=== PATIENT | male | born 1955 | race Caucasian/White ===

== ENCOUNTER 2018-07-05 16:42 | Emergency (ER) | payer OTHER ==
[~2018-07-05] VITALS: Ht 165.1 cm; Wt 63.5 kg
[2018-07-05 16:56] VITALS: BP 134/107
--- NOTE | 2018-07-05 16:58 | NUR ---
PT BIBSELF C/O HIGH BLOOD SUGAR. PER PT HIS LAST BS WAS 501, PT TAKES ORAL HYPOGLYCEMIC BUT RAN OUT. AAOX4, RESPIRATIONS EVEN AND UNLABORED, NAD NOTED, VSS, PENDING MD TOWNSEND
[2018-07-05] MEDS ORDERED: IV NS 0.9% 1,000 ML BAG IV ONE (17:30)
[2018-07-05 17:35] LABS: BASOPHILS # (AUTO) 0.1 /CMM (0.0-0.2); BASOPHILS % (AUTO) 1.2 % (0.0-2.0); EOSINOPHILS % (AUTO) 3.4 % (0.0-6.0); HEMATOCRIT 36 % (39-51); HEMOGLOBIN 12.3 g/dL (13.5-17.5); LYMPHOCYTES # (AUTO) 1.8 /CMM (0.8-4.8); LYMPHOCYTES % (AUTO) 35.6 % (20.0-44.0); MEAN CORPUSCULAR HGB CONC 34 g/dl (31.0-36.0); MEAN CORPUSCULAR VOLUME 86 fL (80-96); MONOCYTES # (AUTO) 0.2 /CMM (0.1-1.30); NEUTROPHILS # (AUTO) 2.7 /CMM (1.8-8.9); NEUTROPHILS % (AUTO) 54.8 % (43.0-81.0); PLATELET COUNT (AUTO) 242 /CMM (150-450); RED BLOOD CELL COUNT(AUTO) 4.18 MIL/uL (4.5-6.0)
--- NOTE | 2018-07-05 17:38 | NUR ---
Addendum: Normal saline 1 L; start time 1738 - end time 1838; LAC piv# 20; port #1 Normal saline 1 L; start time 1738 - end time 1838; LAC piv# 20; port #2
[2018-07-05 17:48] LABS: ALBUMIN 3.7 g/dL (3.4-5.0); BILIRUBIN,TOTAL 0.2 mg/dL (0.2-1.0); CALCIUM, SERUM 8.4 mg/dL (8.5-10.1); CREATININE 1.2 mg/dL (0.6-1.3); POTASSIUM 4.5 mmol/L (3.5-5.1); TOTAL PROTEIN, SERUM 6.9 g/dL (6.4-8.2)
--- NOTE | 2018-07-05 19:01 | NUR ---
PT GIVEN ACI INSTRUCTIONS, PT READY TO BE D/C AFTER IV FLUIDS ARE DONE. PT VERBALIZES UNDERSTANDING. WILL ENDORSE TO ONCOMING SHIFT
--- NOTE | 2018-07-05 19:01 | NUR ---
BS 387
== END 2018-07-05 19:27 | disposition home or self-care (01) ==
LOC: ER 16:46
DX: E11.65 Type 2 diabetes mellitus with hyperglycemia (principal); R01.1 Cardiac murmur, unspecified; Z90.49 Acquired absence of other specified parts of digestive tract; Z76.0 Encounter for issue of repeat prescription
CPT/HCPCS: 36415; 80048-TC; 80076-TC; 82010-TC; 82962-TC; 85025-TC; A4606; J7030; Z7610

== ENCOUNTER 2018-07-28 22:52 | Emergency (ER) | payer OTHER ==
--- NOTE | 2018-07-28 23:16 | NUR ---
INFORMED BY ADMITTING "PT CAME TO THE DESK AND SAID I AM LEAVING"
[2018-07-29] MEDS ORDERED: REPA0.5T4 PO (15:26)
== END 2018-07-28 23:20 | disposition left against medical advice (07) ==
LOC: ER 22:54
DX: Z53.21 Procedure and treatment not carried out due to patient leaving prior to being seen by health care provider (principal); R10.9 Unspecified abdominal pain

== ENCOUNTER 2018-07-29 14:40 | Emergency (ER) | payer OTHER ==
[~2018-07-29] VITALS: Ht 167.6 cm; Wt 61.2 kg
--- NOTE | 2018-07-29 15:05 | NUR ---
BIB SELF, W C/O HIGH BLOOD SUGAR. "BLOOD SUGAR OUT OF CONTROL, 570 1 HR AGO" OUT OF MEDICATION. TO ER BED 1, HOOKED TO MONITOR, AWAITING MD TOWNSEND
[2018-07-29] MEDS ORDERED: REPA0.5T4 PO (15:26)
[2018-07-29] MEDS ORDERED: IV NS 0.9% 1,000 ML BAG IV ONE (15:30)
[2018-07-29 15:44] LABS: CALCIUM, SERUM 8.7 mg/dL (8.5-10.1); CREATININE 1.4 mg/dL (0.6-1.3); POTASSIUM 4.7 mmol/L (3.5-5.1)
[2018-07-29] MEDS ORDERED: INSULIN REGULAR, HUMAN 100 UNIT/ML 10 ML VIAL ONE (16:50)
[2018-07-29] MEDS ORDERED: INSULIN REGULAR, HUMAN 100 UNIT/ML 10 ML VIAL SQ ONE (17:00)
[2018-07-29 17:22] VITALS: BP 153/89
--- NOTE | 2018-07-29 17:22 | NUR ---
IV removed. Catheter intact and site benign. Pressure and 4x4 applied to site. No bleeding noted.Patient discharged to home in stable condition. Written and verbal after care instructions given. Patient verbalizes understanding of instruction.
== END 2018-07-29 17:23 | disposition home or self-care (01) ==
LOC: ER 14:42
DX: E11.65 Type 2 diabetes mellitus with hyperglycemia (principal); R00.0 Tachycardia, unspecified
CPT/HCPCS: 36415; 80048-TC; 82962-TC; A4606; J1815; J7030; Z7610

== ENCOUNTER 2018-08-15 08:08 | Emergency (ER) | payer OTHER ==
[~2018-08-15] VITALS: Ht 167.6 cm; Wt 70.3 kg
[~2018-08-15 08:08] MED LIST: REPA0.5T4 PO
--- NOTE | 2018-08-15 08:19 | NUR ---
AAOX3, BIBRA FOR HYPOGLYCEMIA, BS=59MG/DL VIDEO TECHNICIAN, IV D10 GIVEN IN THE FIELD, NEW NR=278QL/DL. RR IS EVEN AND UNLABORED WITH NAD NOTED. SKIN IS WARM AND DRY. PLACED ON THE MONITOR. DR TERAN AT BS FOR EVAL.
[2018-08-15 08:27] LABS: BASOPHILS % (AUTO) 0.1 % (0.0-2.0); EOSINOPHILS % (AUTO) 0.1 % (0.0-6.0); HEMATOCRIT 34 % (39-51); HEMOGLOBIN 11.5 g/dL (13.5-17.5); LYMPHOCYTES # (AUTO) 1.1 /CMM (0.8-4.8); LYMPHOCYTES % (AUTO) 8.4 % (20.0-44.0); MEAN CORPUSCULAR HGB CONC 34 g/dl (31.0-36.0); MEAN CORPUSCULAR VOLUME 87 fL (80-96); MONOCYTES # (AUTO) 0.6 /CMM (0.1-1.30); MONOCYTES % (AUTO) 4.7 % (2.0-12.0); NEUTROPHILS % (AUTO) 86.7 % (43.0-81.0); PLATELET COUNT (AUTO) 271 /CMM (150-450); WHITE BLOOD COUNT (AUTO) 12.7 K/uL (4.3-11.0)
[2018-08-15] MEDS ORDERED: IV NS 0.9% 500 ML BAG IV ONE (08:30)
[2018-08-15 08:33] LABS: CREATININE 1.5 mg/dL (0.6-1.3)
[2018-08-15 08:39] LABS: ALBUMIN 3.5 g/dL (3.4-5.0); BILIRUBIN,DIRECT 0.1 mg/dL (0.0-0.2); BILIRUBIN,TOTAL 0.3 mg/dL (0.2-1.0); TOTAL PROTEIN, SERUM 6.5 g/dL (6.4-8.2)
[2018-08-15 09:50] VITALS: BP 134/71
--- NOTE | 2018-08-15 09:52 | NUR ---
Patient discharged to home in stable condition. Written and verbal after care instructions given. Patient verbalizes understanding of instruction.IV removed. Catheter intact and site benign. Pressure and 4x4 applied to site. No bleeding noted. PT IN THE WATING ROOM WAITING FOR HIS TO PICK HIM UP. IN NO APPARENT DISTRESS NOTED. PT VERBALIZED HE FEELS ALOT BETTER.
== END 2018-08-15 09:52 | disposition home or self-care (01) ==
LOC: ER 08:10
DX: E11.649 Type 2 diabetes mellitus with hypoglycemia without coma (principal); E86.0 Dehydration; R01.1 Cardiac murmur, unspecified
CPT/HCPCS: 80048; 80076; 82962; 83690; 85025; 99283; A4606; J7040; Z7610; 36415

== ENCOUNTER 2018-08-26 21:47 | Emergency (ER) | payer OTHER ==
[~2018-08-26] VITALS: Ht 167.6 cm; Wt 59.0 kg
--- NOTE | 2018-08-26 21:52 | NUR ---
PT CAME TO EMERGENCY ROOM C/O HYPERGLYCEMIA. PT STATES HE TOOK HIS BS AT HOME WAS 541. PT LOST HIS NOVOLOG 2 DAYS AGO AND [place] FROM [place]. PT IS AAXO4. RESPIRATION EVEN AND UNLABORED. NAD NOTED. PT PUT ON THE MONITOR. AWAITING EVAL FROM ER .
--- NOTE | 2018-08-26 22:14 | NUR ---
LYDIA HUGHES AT BEDSIDE.
--- NOTE | 2018-08-26 22:25 | NUR ---
BOWLING ALLEY MANAGER AT BEDSIDE FOR LABS. 18G L FOREAREM STARTED AND CONVERTED TO SALINE LOCK.
[2018-08-26] MEDS ORDERED: IV NS 0.9% 1,000 ML BAG IV ONE (22:30)
--- NOTE | 2018-08-26 22:30 | NUR ---
URINE SAMPLE OBTAINED FROM PT AND SENT TO LAB.
[2018-08-26 22:34] LABS: BASOPHILS # (AUTO) 0.1 /CMM (0.0-0.2); EOSINOPHILS % (AUTO) 3.3 % (0.0-6.0); HEMATOCRIT 34 % (39-51); HEMOGLOBIN 11.4 g/dL (13.5-17.5); LYMPHOCYTES # (AUTO) 1.7 /CMM (0.8-4.8); LYMPHOCYTES % (AUTO) 28.4 % (20.0-44.0); MEAN CORPUSCULAR HGB CONC 34 g/dl (31.0-36.0); MEAN CORPUSCULAR VOLUME 87 fL (80-96); MONOCYTES # (AUTO) 0.4 /CMM (0.1-1.30); NEUTROPHILS # (AUTO) 3.6 /CMM (1.8-8.9); NEUTROPHILS % (AUTO) 61.3 % (43.0-81.0); PLATELET COUNT (AUTO) 280 /CMM (150-450); RED BLOOD CELL COUNT(AUTO) 3.87 MIL/uL (4.5-6.0); WHITE BLOOD COUNT (AUTO) 5.9 K/uL (4.3-11.0)
[2018-08-26 22:39] LABS: APPEARANCE,URINE CLEAR (CLEAR); BILIRUBIN,URINE NEGATIVE (NEGATIVE); BLOOD, URINE NEGATIVE Ery/uL (NEGATIVE); COLOR,URINE YELLOW (YELLOW); KETONES,URINE NEGATIVE (NEGATIVE); LEUKOCYTE ESTERASE ,URINE NEGATIVE (NEGATIVE); NITRITE, URINE NEGATIVE (NEGATIVE); PROTEIN,URINE NEGATIVE (NEGATIVE); UGLUCOSE 3+ mg/dL (NEGATIVE); UROBILINOGEN,URINE 0.2 EU/dL (0.2)
[2018-08-26] MEDS ORDERED: INSULIN REGULAR, HUMAN 100 UNIT/ML 10 ML VIAL ONE (22:42)
[2018-08-26 22:46] LABS: BACTERIA,URINE Rare /HPF (None Seen); RBC,URINE 0-2 /HPF (0-2); SQUAMOUS EPITHELIAL CELL,UR Rare /HPF (None Seen); WBC,URINE 0-2 /HPF (0-3)
[2018-08-26 22:49] LABS: ALBUMIN 3.3 g/dL (3.4-5.0); BILIRUBIN,DIRECT 0.1 mg/dL (0.0-0.2); BILIRUBIN,TOTAL 0.3 mg/dL (0.2-1.0); CALCIUM, SERUM 8.2 mg/dL (8.5-10.1); CREATININE 1.5 mg/dL (0.6-1.3); POTASSIUM 4.6 mmol/L (3.5-5.1); TOTAL PROTEIN, SERUM 6.4 g/dL (6.4-8.2)
[2018-08-26] MEDS ORDERED: INSULIN REGULAR, HUMAN 100 UNIT/ML 10 ML VIAL SQ ONE (23:00)
--- NOTE | 2018-08-26 23:30 | NUR ---
RPatient is resting comfortably in bed with eyes closed. Easily aroused. VSS. NAD NOTED. CALL LIGHT WITHIN REACH.
[2018-08-27] MEDS ORDERED: IV NS 0.9% 1,000 ML BAG IV ONE
[2018-08-27] MEDS ORDERED: INSULIN REGULAR, HUMAN 100 UNIT/ML 10 ML VIAL SQ ONE
--- NOTE | 2018-08-27 | NUR ---
PT STATES "HE WANTS TO GO HOME." ER MD NOTIFIED OF PATIENTS REQUEST.
--- NOTE | 2018-08-27 00:17 | NUR ---
Patient discharged to home in stable condition. Written and verbal after care instructions given. Patient verbalizes understanding of instruction. IV removed. Catheter intact and site benign. Pressure and 4x4 applied to site. No bleeding noted. PT AAXO4. AMBULATORY WITH STEADY GAIT.
[2018-08-27 00:18] VITALS: BP 138/78
[2018-08-27] MEDS ORDERED: BACL20TA PO (07:28)
[2018-08-27] MEDS ORDERED: INSU10VI3 SQ (07:28)
[2018-08-27] MEDS ORDERED: NAPR-1009 PO (07:28)
== END 2018-08-27 00:18 | disposition home or self-care (01) ==
LOC: ER 21:49
DX: E11.65 Type 2 diabetes mellitus with hyperglycemia (principal); R01.1 Cardiac murmur, unspecified; Z76.0 Encounter for issue of repeat prescription; Z79.4 Long term (current) use of insulin
CPT/HCPCS: 36415; 80048; 80076; 81001; 82010; 82962 ×4; 83690; 85025; 96360; 96361; 96372 ×2; 99283; A4606; J1815; J7030 ×2; Z7610; 81000-TC

== ENCOUNTER 2018-08-27 03:41 | Inpatient (IN) | payer OTHER ==
[~2018-08-27] VITALS: Ht 167.6 cm; Wt 59.0 kg
--- NOTE | 2018-08-27 03:47 | NUR ---
PT DROPPED OFF BY C/O "PT IS SWEATING ALOT." PT WAS WHEELCHAIRED INTO ER, PT WEAK, DIAPHORETIC, ALTERED, INCOMPREHENSABLE TO VOICE, PALE. PT WAS TAKEN TO BED 10, PUT ON THE MONITOR, BS WAS 19.
[2018-08-27] MEDS ORDERED: DEXTROSE 50%-WATER 50 ML DISP.SYRIN ONE ×2 (03:48→05:22)
--- NOTE | 2018-08-27 03:50 | NUR ---
20G IV WAS STARTED ON R AC. ER AT BEDSIDE, PT WAS GIVEN AN AMP OF D50 IVPUSH.
--- NOTE | 2018-08-27 03:51 | NUR ---
PT ALERT AND RESPONSIVE TO VOICE. PT ASKING "HOW HE GOT TO THE ER."
--- NOTE | 2018-08-27 04:05 | NUR ---
PT AAXO4. PT GIVEN A SANDWICH AND APPLE JUICE. PT ON THE MONITOR AND PULSE OX.
--- NOTE | 2018-08-27 04:10 | NUR ---
PT COMPLETED HIS SANDWHICH AND APPLE JUICE.
[2018-08-27] MEDS ORDERED: DEXTROSE 50%-WATER 50 ML DISP.SYRIN IVP ONE ×2 (04:30→05:30)
--- NOTE | 2018-08-27 04:45 | NUR ---
Patient is resting comfortably in bed with eyes closed. Easily aroused. VSS.
[2018-08-27] MEDS ORDERED: IV D5/0.45 NACL 1,000 ML IV ONE (05:30)
[2018-08-27] MEDS ORDERED: HYDROCODONE/APAP 5/325MG 1 EACH TABLET PO PRN ×2 (06:00→06:30)
[2018-08-27] MEDS ORDERED: DEXTROSE 50%-WATER 50 ML DISP.SYRIN IV PRN ×2 (06:00→06:30)
[2018-08-27] MEDS ORDERED: INSULIN REGULAR, HUMAN 100 UNIT/ML 3 ML VIAL SQ PRN (06:00)
[2018-08-27] MEDS ORDERED: ONDANSETRON HCL/PF 4 MG/2 ML VIAL IVP PRN ×2 (06:00→06:30)
[2018-08-27] MEDS ORDERED: MAG HYDROX/AL HYDROX/SIMETH 30 ML UDC PO PRN ×2 (06:00→06:30)
[2018-08-27] MEDS ORDERED: MAGNESIUM HYDROXIDE 30 ML UDC PO PRN ×2 (06:00→06:30)
[2018-08-27] MEDS ORDERED: Z GUARD REMEDY 2 OZ OINT TP PRN ×2 (06:00→06:30)
[2018-08-27] MEDS ORDERED: ACETAMINOPHEN 325 MG TABLET PO PRN (06:00)
--- NOTE | 2018-08-27 06:25 | NUR ---
REPORT GIVEN TO ANAM FINN FOR RENETTA.
--- NOTE | 2018-08-27 06:54 | NUR ---
RECEIVE PT VIA [employer] AT 0645 PT A/OX 4, RESPIRATION EVEN AND UNLABORED. NOT IN DISTRESS, NO COMPLAIN OF PAIN. ADMIT TO TELE, VS STABLE BP 131/88 R 19 P 64 T 98.1 02 SAT 100% ENDORSE T O NEXT ADMITTING RN FOR POC.
--- NOTE | 2018-08-27 07:00 | NUR ---
RN OPENING NOTE: RECEIVED REPORT FROM ANAM FINN AND PATIENT WAS ADMITTED TO THE UNIT UNDER THE CARE OF ELIJAH SEAMAN NP. WILL FOLLOW-UP WITH THE ONCOMING MD RE: THE ADMISSION ORDERS. PATIENT WAS ALERT, AWAKE AND VERBALLY RESPONSIVE. RESPIRATION EVEN AND UNLABORED SATURATING 100% IN ROOM AIR. DENIED ANY DISCOMFORT OR PAIN. ON APPLIANCE LINE ASSEMBLER SR WITH BBB HR= 79. HOB ELEVATED. (R) AC IV SITE NOTED PATENT AND INTACT INFUSING D5 1/2 NS @ 150ML/HR. BED ALARMED AND LOCKED AT ALL TIMES. PLACED BED ON THE LOWEST POSITION. COMPLETE BODY ASSESSMENT DONE. PATIENT REMAINED NPO AT THIS TIME AND AWAITING FOR MD FOR THE PATIENT'S DIET ORDER. WILL CHECK THE PATIENT'S BLOOD SUGAR. CALL LIGHT WITHIN REACH AND ENCOURAGED THE PATIENT TO USE THE CALL LIGHT IF HE NEEDED ASSISTANCE WITH THE NURSES. PATIENT VERBALIZED UNDERSTANDING. NEEDS ANTICIPATED.
[2018-08-27] MEDS ORDERED: NAPR-1009 PO (07:28)
[2018-08-27] MEDS ORDERED: BACL20TA PO (07:28)
[2018-08-27] MEDS ORDERED: INSU10VI3 SQ (07:28)
[2018-08-27] MEDS ORDERED: BLOOD SUGAR DIAGNOSTIC 1 EACH STRIP IN SCH (07:30)
[2018-08-27] MEDS: BLOOD SUGAR DIAGNOSTIC 1 EACH STRIP IN SCH ×4 (07:54→22:10)
[2018-08-27 08:00] VITALS: BP 128/82
[2018-08-27 08:57] LABS: BASOPHILS % (AUTO) 0.4 % (0.0-2.0); EOSINOPHILS % (AUTO) 1.1 % (0.0-6.0); HEMATOCRIT 34 % (39-51); HEMOGLOBIN 11.6 g/dL (13.5-17.5); LYMPHOCYTES # (AUTO) 1.2 /CMM (0.8-4.8); LYMPHOCYTES % (AUTO) 14.8 % (20.0-44.0); MEAN CORPUSCULAR HGB CONC 34 g/dl (31.0-36.0); MEAN CORPUSCULAR VOLUME 87 fL (80-96); MONOCYTES # (AUTO) 0.4 /CMM (0.1-1.30); MONOCYTES % (AUTO) 5.1 % (2.0-12.0); NEUTROPHILS # (AUTO) 6.6 /CMM (1.8-8.9); NEUTROPHILS % (AUTO) 78.6 % (43.0-81.0); PLATELET COUNT (AUTO) 291 /CMM (150-450); RED BLOOD CELL COUNT(AUTO) 3.97 MIL/uL (4.5-6.0); WHITE BLOOD COUNT (AUTO) 8.4 K/uL (4.3-11.0)
[2018-08-27 09:19] LABS: POTASSIUM 4.6 mmol/L (3.5-5.1)
[2018-08-27 09:29] LABS: THYROID STIMULATING HORMONE 2.3 uIU/mL (0.358-3.74)
[2018-08-27] MEDS: INSULIN REGULAR, HUMAN 100 UNIT/ML 3 ML VIAL SQ PRN ×3 (11:56→22:13)
[2018-08-27 12:00] VITALS: BP 148/80
[2018-08-27 16:00] VITALS: BP 158/96
[2018-08-27] MEDS: ACETAMINOPHEN 325 MG TABLET PO PRN (16:52)
--- NOTE | 2018-08-27 16:56 | NUR ---
RN NOTE: CALLED AND SPOKE WITH DR. HOFF RE: THE PATIENT'S BLOOD PRESSURE THAT WAS GRADUALLY INCREASING. MD GAVE AN ORDER FOR A LISINOPRIL 20MG PO X1. PATIENT MADE AWARE. PATIENT CONTINUED TO DENIED PAIN, BUT NOTED WITH A MILD FEVER 99.0 F AND TYLENOL WAS GIVEN MD ORDERED. PER DR. HOFF, PATIENT CAN GO HOME IF BLOOD SUGAR WILL BE NORMAL.
[2018-08-27] MEDS ORDERED: LISINOPRIL (20MG) 20 MG TABLET PO ONE (17:00)
--- NOTE | 2018-08-27 18:23 | NUR ---
RN NOTE: RECHECKED PATIENT'S BP AND IT WAS 121/69 HR 102. PATIENT STATED "I STILL DON'T FEEL WELL. I DON'T WANT TO GO HOME TONIGHT." PAGED DR. HOFF ABOUT IT AND AWAITING FOR MD'S RESPONSE. PATIENT CONTINUED TO DENIED PAIN.
--- NOTE | 2018-08-27 18:35 | NUR ---
RN NOTE: RECEIVED A PHONE CALL FROM DR. HOFF AND HE WAS INFORMED ABOUT THE PATIENT'S REQUEST TO STAY OVERNIGHT AND THAT HE STILL DOES NOT FEEL WELL. MD WAS GIVEN AN UPDATE RE: THE CURRENT BP AND BLOOD SUGAR. PER MD, OK TO KEEP THE PATIENT FOR TONIGHT. WILL INFORM THE PM SHIFT NURSE ABOUT THIS. PATIENT WAS INFORMED THAT MD WAS AWARE OF HIS CURRENT CONDITION AT THIS TIME.
--- NOTE | 2018-08-27 19:40 | NUR ---
RN CLOSING NOTE: PATIENT REMAINED ON STABLE CONDITION. BEDSIDE REPORT GIVEN TO PM SHIFT NURSE FOR CONTINUITY OF CARE.
[2018-08-27 20:00] VITALS: BP 101/57
--- NOTE | 2018-08-27 22:00 | NUR ---
RN NOTE BS 220, 4UNITS OF INSULIN ADMINISTERED ORDERED
[2018-08-28] VITALS: BP 91/50
[2018-08-28 00:30] VITALS: BP 110/63
[2018-08-28] MEDS: ACETAMINOPHEN 325 MG TABLET PO PRN (03:47)
[2018-08-28 04:00] VITALS: BP 108/64
--- NOTE | 2018-08-28 06:46 | NUR ---
RN NOTE PATIENT REMAINED STABLE DURING MY SHIFT, AFEBRILE, BEDSIDE REPORT PROVIDED TO AM NURSE
--- NOTE | 2018-08-28 07:30 | NUR ---
RN OPENING NOTE: RECEIVED PATIENT IN BED, AWAKE, ALERT AND ABLE TO MAKE HIS NEEDS KNOWN. RESPIRATION EVEN AND UNLABORED SATURATING 96% IN ROOM AIR. ON FLUE DUST LABORER SR HR 86. (R) AC IV SITE NOTED PATENT AND INTACT AND FLUSHED WITH NS 3ML. DENIED ANY PAIN. WILL CHECK PATIENT'S BLOOD SUGAR BEFORE BREAKFAST. HOB ELEVATED. BED ALARMED AND LOCKED AT ALL TIMES. BED ON LOWEST POSITION. CALL LIGHT WITHIN REACH. NEEDS ANTICIPATED. PATIENT STATED "I FEEL MUCH BETTER NOW." AWAITING FOR THE ROUNDING MD.
[2018-08-28 08:00] VITALS: BP 105/63
[2018-08-28] MEDS: BLOOD SUGAR DIAGNOSTIC 1 EACH STRIP IN SCH ×2 (08:06→11:50)
[2018-08-28] MEDS: INSULIN REGULAR, HUMAN 100 UNIT/ML 3 ML VIAL SQ PRN ×2 (08:13→11:57)
[2018-08-28 12:00] VITALS: BP 142/79
--- NOTE | 2018-08-28 13:05 | NUR ---
UNDERLINER NOTE: PATIENT HAS BEEN DISCHARGED TO HOME WITH ALL HER BELONGINGS. PATIENT WAS GIVEN DISCHARGE INSTRUCTIONS AND EXIT CARE WAS DONE. (R) AC IV SITE WAS REMOVED AND PATIENT TOLERATED IT WELL. PATIENT'S ID BAND WAS REMOVED. PATIENT WAS PICKED-UP BY HIS [id number] PATRICIA AND PATIENT WAS WHEELED TO THE HOSPITAL MAIN LOBBY VIA WHEELCHAIR. PATIENT ATE HIS LUNCH MEAL 75%. PATIENT HAS NO QUESTION REGARDING HIS DISCHARGE INSTRUCTION AND PER PATIENT, HE WAS SCHEDULED TO SEE HIS PRIMARY CARE PHYSICIAN THIS TUESDAY (09/01/18).
== END 2018-08-28 13:05 | disposition home or self-care (01) | DRG 420 ==
LOC: ER 03:42 → TELE1 06:34
PROVIDERS: ADMIT Internal Medicine; ATTEND Internal Medicine
DX: E11.649 Type 2 diabetes mellitus with hypoglycemia without coma (principal); I10 Essential (primary) hypertension; Z79.4 Long term (current) use of insulin
CPT/HCPCS: 36415; 80048-TC; 80061-TC; 82962-TC; 83735-TC; 84100-TC; 84443-TC; 85025-TC; 87081-TC; G0378; J1815; J3490

== ENCOUNTER 2018-10-22 16:28 | Emergency (ER) | payer OTHER ==
[~2018-10-22] VITALS: Ht 167.6 cm; Wt 63.5 kg
[2018-10-22 16:28] VITALS: BP 148/93
[~2018-10-22 16:28] MED LIST changes: +BACL20TA PO; +INSU10VI3 SQ; +NAPR-1009 PO
--- NOTE | 2018-10-22 18:17 | NUR ---
CALLED TO ROOM IN,NO ANSWER
--- NOTE | 2018-10-22 18:39 | NUR ---
CALLED TO TRIAGE,NO ANSWER
== END 2018-10-22 18:41 | disposition left against medical advice (07) ==
LOC: ER 16:33
DX: Z53.21 Procedure and treatment not carried out due to patient leaving prior to being seen by health care provider (principal); I10 Essential (primary) hypertension; E11.9 Type 2 diabetes mellitus without complications; R00.0 Tachycardia, unspecified

== ENCOUNTER 2018-11-16 07:39 | Emergency (ER) | payer OTHER ==
[~2018-11-16] VITALS: Ht 175.3 cm; Wt 66.7 kg
[2018-11-16] MEDS ORDERED: DEXTROSE 50%-WATER 50 ML DISP.SYRIN ONE (07:43)
--- NOTE | 2018-11-16 07:45 | NUR ---
AAOX3, BIB Spouse from home "woke up sweaty,irritable not quite himself" BS-33 upon arrival. RR is even and unlabored. RR is even and unlabored with nad noted. diaphoretic. Placed on the monitor. Awaiting md for eval.
[2018-11-16] MEDS: DEXTROSE 50%-WATER 50 ML DISP.SYRIN IVP ONE (07:48)
[2018-11-16 08:04] LABS: BASOPHILS % (AUTO) 0.4 % (0.0-2.0); EOSINOPHILS % (AUTO) 0.4 % (0.0-6.0); HEMATOCRIT 35 % (39-51); HEMOGLOBIN 11.9 g/dL (13.5-17.5); LYMPHOCYTES # (AUTO) 1.3 /CMM (0.8-4.8); LYMPHOCYTES % (AUTO) 18.3 % (20.0-44.0); MEAN CORPUSCULAR HGB CONC 34 g/dl (31.0-36.0); MEAN CORPUSCULAR VOLUME 84 fL (80-96); MONOCYTES # (AUTO) 0.4 /CMM (0.1-1.30); MONOCYTES % (AUTO) 5.7 % (2.0-12.0); NEUTROPHILS # (AUTO) 5.5 /CMM (1.8-8.9); NEUTROPHILS % (AUTO) 75.2 % (43.0-81.0); PLATELET COUNT (AUTO) 330 /CMM (150-450); RED BLOOD CELL COUNT(AUTO) 4.14 MIL/uL (4.5-6.0); WHITE BLOOD COUNT (AUTO) 7.3 K/uL (4.3-11.0)
[2018-11-16] MEDS ORDERED: INSU100I26 SQ (08:05)
[2018-11-16] MEDS ORDERED: LISI-607 PO (08:05)
--- NOTE | 2018-11-16 08:05 | NUR ---
Patient is resting comfortably in bed with eyes closed. Easily aroused. VSS
--- NOTE | 2018-11-16 08:05 | NUR ---
BS = 191MG/DL, MADE DR VARGAS AWARE, VERBAL ORDER TO HOLD OFF ON D5 1/2NS.
[2018-11-16 08:14] LABS: CALCIUM, SERUM 8.2 mg/dL (8.5-10.1); CARBON DIOXIDE 23 mmol/L (21-32); CHLORIDE 103 mmol/L (98-107); GLUCOSE 298 mg/dL (74-106); POTASSIUM 4.3 mmol/L (3.5-5.1); SODIUM SERUM 136 mmol/L (136-145)
[2018-11-16 08:15] LABS: CREATININE 1.2 mg/dL (0.6-1.3); UREA NITROGEN, BLOOD 25 mg/dL (7-18)
[2018-11-16 08:20] LABS: ALANINE AMINOTRANSFERASE 13 U/L (12-78); ALBUMIN 3.5 g/dL (3.4-5.0); BILIRUBIN,TOTAL 0.2 mg/dL (0.2-1.0); TOTAL PROTEIN, SERUM 6.8 g/dL (6.4-8.2)
--- NOTE | 2018-11-16 08:20 | NUR ---
Food tray provided at .
[2018-11-16 08:31] LABS: ALKALINE PHOSPHATASE 66 U/L (46-116); ASPARTATE AMINOTRANSFERASE 14 U/L (15-37)
[2018-11-16] MEDS: IV D5/0.45 NACL 1,000 ML IV ONE (08:43)
[2018-11-16 10:57] VITALS: BP 138/81
== END 2018-11-16 10:59 | disposition home or self-care (01) ==
LOC: ER 07:40
DX: E11.649 Type 2 diabetes mellitus with hypoglycemia without coma (principal); R01.1 Cardiac murmur, unspecified; Z79.4 Long term (current) use of insulin
CPT/HCPCS: 36415; 71045-TC; 80053-TC; 82962-TC; 84484-TC; 85025-TC; 85730-TC

== ENCOUNTER 2019-01-16 20:37 | Emergency (ER) | payer OTHER ==
[~2019-01-16] VITALS: Ht 167.6 cm; Wt 61.2 kg
[~2019-01-16 20:37] MED LIST changes: +INSU100I26 SQ; -INSU10VI3 SQ; +LISI-607 PO
--- NOTE | 2019-01-16 21:40 | NUR ---
Pt BIB SELF FROM HOME, C/O SEVERE LT SIDED TOOTHACHE PAIN 05/17. Pt IS A/OX4, VERBAL, ABLE TO MAKE NEEDS KNOWN. Pt BEING SEEN BY MD AT BEDSIDE. WILL CARRY OUT ORDERS.
--- NOTE | 2019-01-16 21:45 | NUR ---
ALL ORDERED MEDS GIVEN. Pt TOLERATED WELL.
[2019-01-16] MEDS ORDERED: HYDROCODONE/APAP 5/325MG 1 EACH TABLET ONE (21:56)
[2019-01-16] MEDS ORDERED: IBUPROFEN 600 MG TABLET PO ONE ×2 (21:56→22:00)
[2019-01-16] MEDS ORDERED: HYDROCODONE/APAP 5/325MG 1 EACH TABLET PO ONE (22:00)
--- NOTE | 2019-01-16 22:00 | NUR ---
Patient discharged to home in stable condition. Written and verbal after care instructions given. Patient verbalizes understanding of instruction. Instructed pt not to drive, was told that will pick him up. No IV access. ID band removed. Pt left facility on foot with steady gait. Will be waiting in the lobby for to pick him up.
[2019-01-16 22:13] VITALS: BP 118/76
== END 2019-01-16 22:14 | disposition home or self-care (01) ==
LOC: ER 20:37
DX: K08.89 Other specified disorders of teeth and supporting structures (principal); E11.9 Type 2 diabetes mellitus without complications; Z79.899 Other long term (current) drug therapy; Z79.4 Long term (current) use of insulin
CPT/HCPCS: 82962-TC

== ENCOUNTER 2019-01-27 20:21 | Emergency (ER) | payer OTHER ==
[~2019-01-27] VITALS: Ht 167.6 cm; Wt 59.0 kg
--- NOTE | 2019-01-27 20:35 | NUR ---
PT PAPO C/O "HIGH BLOOD SUGAR", PATIENT STATES BS WAS 587 X 1 HOUR AGO. PATIENT STATES HE DOES NOT HAVE HIS INSULIN, [place]. PT ON MONITOR IN BED 2. PT AOX4. NAD NOTED. RESP EVEN AND UNLABORED. WILL CONTINUE TO MONITOR.
--- NOTE | 2019-01-27 20:49 | NUR ---
BLOOD DRAWN AND SENT TO LAB
--- NOTE | 2019-01-27 20:49 | NUR ---
BG 520. AWARE.
[2019-01-27 20:51] LABS: EOSINOPHILS % (AUTO) 1.9 % (0.0-6.0); HEMATOCRIT 32 % (39-51); HEMOGLOBIN 11.1 g/dL (13.5-17.5); LYMPHOCYTES # (AUTO) 1.6 /CMM (0.8-4.8); LYMPHOCYTES % (AUTO) 34.5 % (20.0-44.0); MEAN CORPUSCULAR HGB CONC 35 g/dl (31.0-36.0); MEAN CORPUSCULAR VOLUME 85 fL (80-96); MONOCYTES # (AUTO) 0.3 /CMM (0.1-1.30); MONOCYTES % (AUTO) 6.1 % (2.0-12.0); NEUTROPHILS # (AUTO) 2.6 /CMM (1.8-8.9); NEUTROPHILS % (AUTO) 56.5 % (43.0-81.0); PLATELET COUNT (AUTO) 244 /CMM (150-450); RED BLOOD CELL COUNT(AUTO) 3.77 MIL/uL (4.5-6.0); WHITE BLOOD COUNT (AUTO) 4.5 K/uL (4.3-11.0)
[2019-01-27] MEDS ORDERED: IV NS 0.9% 1,000 ML BAG IV ONE (21:00)
[2019-01-27 21:06] LABS: ALBUMIN 3.5 g/dL (3.4-5.0); BILIRUBIN,TOTAL 0.3 mg/dL (0.2-1.0); CALCIUM, SERUM 8.8 mg/dL (8.5-10.1); CREATININE 1.3 mg/dL (0.6-1.3); POTASSIUM 4.7 mmol/L (3.5-5.1); TOTAL PROTEIN, SERUM 6.6 g/dL (6.4-8.2)
[2019-01-27 21:16] VITALS: BP 139/78
[2019-01-27] MEDS ORDERED: INSULIN REGULAR, HUMAN 100 UNIT/ML 10 ML VIAL ONE (22:24)
[2019-01-27] MEDS ORDERED: INSULIN REGULAR, HUMAN 100 UNIT/ML 3 ML VIAL IV ONE (22:30)
[2019-01-28 00:44] LABS: APPEARANCE,URINE Clear (CLEAR); BILIRUBIN,URINE Negative (NEGATIVE); BLOOD, URINE Negative Ery/uL (NEGATIVE); COLOR,URINE Yellow (YELLOW); KETONES,URINE Negative (NEGATIVE); LEUKOCYTE ESTERASE ,URINE Negative (NEGATIVE); NITRITE, URINE Negative (NEGATIVE); PROTEIN,URINE Negative (NEGATIVE); UGLUCOSE >=1000 mg/dL (NEGATIVE); UROBILINOGEN,URINE 0.2 EU/dL (0.2)
--- NOTE | 2019-01-28 00:51 | NUR ---
BG 172. AWARE.
--- NOTE | 2019-01-28 00:57 | NUR ---
IV removed. Catheter intact and site benign. Pressure and 4x4 applied to site. No bleeding noted.Patient discharged to home in stable condition. Written and verbal after care instructions given. Patient verbalizes understanding of instruction. PT AMBULATORY WITH STEADY GAIT.
[2019-01-28 01:09] LABS: BACTERIA,URINE Rare /HPF (None Seen); RBC,URINE 0-2 /HPF (0-2); SQUAMOUS EPITHELIAL CELL,UR Rare /HPF (None Seen); WBC,URINE 0-2 /HPF (0-3)
[2019-03-13] MEDS ORDERED: METO-295 PO (10:22)
[2019-03-13] MEDS ORDERED: ERYT250C68 PO (10:22)
== END 2019-01-28 01:06 | disposition home or self-care (01) ==
LOC: ER 20:31
DX: E11.65 Type 2 diabetes mellitus with hyperglycemia (principal); Z79.899 Other long term (current) drug therapy; Z79.4 Long term (current) use of insulin
CPT/HCPCS: 36415; 80048; 80076; 81001; 82010; 82962 ×3; 85025; 96360; 96372; 99283; J1815 ×2; J7030; 81000-TC

== ENCOUNTER 2019-02-03 11:03 | Emergency (ER) | payer OTHER ==
[~2019-02-03] VITALS: Ht 167.6 cm; Wt 61.2 kg
[2019-02-03] MEDS ORDERED: LIDOCAINE 1%-EPI 1:100,000 20 ML VIAL ONE (11:22)
--- NOTE | 2019-02-03 11:25 | NUR ---
SCALP LACERATION S/P GLF AT 0300.. DENIES KO. C/O MILD HEADACHE. UTD W/ TETANUS SHOT. PER , PT HAS ALSO BEEN HYPERGLYCEMIC. DENIES DIZZINESS, WEAKNESS, N/V, BLURRY VISION. MADE COMFORTABLE AND READY FOR EVAL.
[2019-02-03] MEDS ORDERED: ACETAMINOPHEN ES 500 MG TABLET ONE (11:26)
[2019-02-03] MEDS ORDERED: LIDOCAINE 1%-EPI 1:100,000 50 ML VIAL IJ ONE (11:30)
[2019-02-03] MEDS ORDERED: ACETAMINOPHEN ES 500 MG TABLET PO ONE (11:30)
[2019-02-03] MEDS ORDERED: IV NS 0.9% 1,000 ML BAG IV ONE (11:30)
[2019-02-03 11:52] LABS: BASOPHILS % (AUTO) 0.4 % (0.0-2.0); EOSINOPHILS % (AUTO) 1.2 % (0.0-6.0); HEMATOCRIT 36 % (39-51); LYMPHOCYTES # (AUTO) 2.7 /CMM (0.8-4.8); LYMPHOCYTES % (AUTO) 26.8 % (20.0-44.0); MEAN CORPUSCULAR HGB CONC 34 g/dl (31.0-36.0); MEAN CORPUSCULAR VOLUME 86 fL (80-96); MONOCYTES # (AUTO) 0.5 /CMM (0.1-1.30); MONOCYTES % (AUTO) 4.9 % (2.0-12.0); NEUTROPHILS # (AUTO) 6.8 /CMM (1.8-8.9); NEUTROPHILS % (AUTO) 66.7 % (43.0-81.0); PLATELET COUNT (AUTO) 270 /CMM (150-450); RED BLOOD CELL COUNT(AUTO) 4.17 MIL/uL (4.5-6.0); WHITE BLOOD COUNT (AUTO) 10.1 K/uL (4.3-11.0)
[2019-02-03 12:01] LABS: ABG BASE EXCESS -0.2 mmol/L; ABG OXYGEN SATURATION 67.7 % (92.0-98.5); ABG PCO2 47.4 mmHg (35.0-45.0); ABG PH 7.353 (7.350-7.450); ABG PO2 36.6 mmHg (75.0-100.0); COHb 0.9 % (0.5-1.5); MetHb 0.8 % (0.0-1.5); O2Hb 66.5 % (94.0-97.0)
[2019-02-03 12:07] LABS: CALCIUM, SERUM 8.4 mg/dL (8.5-10.1); CREATININE 1.3 mg/dL (0.6-1.3); POTASSIUM 4.6 mmol/L (3.5-5.1)
[2019-02-03] MEDS ORDERED: INSULIN LISPRO/ASPART 100 UNIT/ML CARTRIDGE SQ STA (12:14)
[2019-02-03 13:10] VITALS: BP 114/75
== END 2019-02-03 13:11 | disposition home or self-care (01) ==
LOC: ER 11:03
DX: S01.01XA Laceration without foreign body of scalp, initial encounter (principal); S30.0XXA Contusion of lower back and pelvis, initial encounter; E11.65 Type 2 diabetes mellitus with hyperglycemia; Z79.899 Other long term (current) drug therapy; Z79.4 Long term (current) use of insulin; W01.0XXA Fall on same level from slipping, tripping and stumbling without subsequent striking against object, initial encounter; Y93.89 Activity, other specified; Y92.89 Other specified places as the place of occurrence of the external cause; Y99.8 Other external cause status
CPT/HCPCS: 12001; 36415; 36600; 72170; 80048; 82803; 82962; 85025; 96360; 96372; 99284; A6402; A6403; J1815; J3490 ×2; J7030

== ENCOUNTER 2019-02-14 17:28 | Emergency (ER) | payer OTHER ==
[~2019-02-14] VITALS: Ht 167.6 cm; Wt 61.2 kg
[2019-02-14 17:48] VITALS: BP 102/70
== END 2019-02-14 18:33 | disposition home or self-care (01) ==
LOC: ER 17:28
DX: S01.01XD Laceration without foreign body of scalp, subsequent encounter (principal); E11.9 Type 2 diabetes mellitus without complications; Z79.899 Other long term (current) drug therapy; Z79.4 Long term (current) use of insulin; W01.0XXD Fall on same level from slipping, tripping and stumbling without subsequent striking against object, subsequent encounter
CPT/HCPCS: Z7502

== ENCOUNTER 2019-03-04 12:38 | Inpatient (IN) | payer OTHER ==
[2019-03-04] VITALS (20 sets, daily range): BP systolic 121–173; BP diastolic 62–105
[~2019-03-04] VITALS: Ht 167.6 cm; Wt 62.1 kg
--- NOTE | 2019-03-04 12:41 | NUR ---
PT VENTURA FROM HOME FOR HIGH BLOOD SUGAR READING, PT AAOX4, -SOB, NAD NOTED, VSS, PENDING MD TOWNSEND
[2019-03-04] MEDS ORDERED: ONDANSETRON HCL/PF 4 MG/2 ML VIAL ONE (12:50)
[2019-03-04 12:56] LABS: BASOPHILS % (AUTO) 0.5 % (0.0-2.0); EOSINOPHILS % (AUTO) 0.1 % (0.0-6.0); HEMATOCRIT 35 % (39-51); HEMOGLOBIN 11.6 g/dL (13.5-17.5); LYMPHOCYTES # (AUTO) 0.7 /CMM (0.8-4.8); LYMPHOCYTES % (AUTO) 9.6 % (20.0-44.0); MEAN CORPUSCULAR HGB CONC 34 g/dl (31.0-36.0); MEAN CORPUSCULAR VOLUME 86 fL (80-96); MONOCYTES # (AUTO) 0.2 /CMM (0.1-1.30); MONOCYTES % (AUTO) 2.5 % (2.0-12.0); NEUTROPHILS # (AUTO) 6.1 /CMM (1.8-8.9); NEUTROPHILS % (AUTO) 87.3 % (43.0-81.0); PLATELET COUNT (AUTO) 248 /CMM (150-450); RED BLOOD CELL COUNT(AUTO) 4.05 MIL/uL (4.5-6.0)
[2019-03-04] MEDS ORDERED: ONDANSETRON HCL/PF 4 MG/2 ML VIAL IVP ONE (13:00)
[2019-03-04] MEDS ORDERED: IV NS 0.9% 1,000 ML BAG IV ONE ×2 (13:00→14:00)
[2019-03-04 13:19] LABS: ALANINE AMINOTRANSFERASE 14 U/L (12-78); ALBUMIN 3.7 g/dL (3.4-5.0); ALKALINE PHOSPHATASE 97 U/L (46-116); ASPARTATE AMINOTRANSFERASE 16 U/L (15-37); BILIRUBIN,DIRECT 0.1 mg/dL (0.0-0.2); BILIRUBIN,TOTAL 0.3 mg/dL (0.2-1.0); CALCIUM, SERUM 8.4 mg/dL (8.5-10.1); CARBON DIOXIDE 20 mmol/L (21-32); CHLORIDE 105 mmol/L (98-107); CREATININE 1.3 mg/dL (0.6-1.3); LIPASE 81 U/L (73-393); POTASSIUM 4.8 mmol/L (3.5-5.1); SODIUM SERUM 141 mmol/L (136-145); TOTAL PROTEIN, SERUM 6.9 g/dL (6.4-8.2); UREA NITROGEN, BLOOD 24 mg/dL (7-18)
[2019-03-04 13:20] LABS: GLUCOSE 517 mg/dL (74-106)
[2019-03-04] MEDS ORDERED: INSULIN ASPART/LISPRO 100 UNIT/ML CARTRIDGE SQ STA (13:37)
[2019-03-04] MEDS ORDERED: IBUP-1955 PO (13:39)
[2019-03-04] MEDS ORDERED: HYDR-3972 PO (13:39)
[2019-03-04] MEDS ORDERED: INSULIN REGULAR, HUMAN 100 UNIT/ML 10 ML VIAL ONE (13:50)
--- NOTE | 2019-03-04 14:16 | NUR ---
ICU 257
[2019-03-04 14:34] LABS: ABG BASE EXCESS -5.6 mmol/L; ABG OXYGEN SATURATION 73.6 % (92.0-98.5); ABG PCO2 46.1 mmHg (35.0-45.0); ABG PO2 43.4 mmHg (75.0-100.0); COHb 0.8 % (0.5-1.5); MetHb 0.5 % (0.0-1.5); O2Hb 72.6 % (94.0-97.0); SITE, ABG LEFT ARM; VENT MODE, BG ROOM AIR
--- NOTE | 2019-03-04 14:37 | NUR ---
report given to isac godinez for nando; pt will be transported to icu via [facility]
[2019-03-04] MEDS ORDERED: ACETAMINOPHEN 325 MG TABLET PO PRN (15:00)
[2019-03-04] MEDS: IV NS 0.9% 1,000 ML IV SCH ×2 (15:47→22:59)
[2019-03-04] MEDS ORDERED: INSULIN REGULAR, HUMAN 100 UNIT in IV NS 0.9% 99 ML IV PRN ×2 (15:48)
[2019-03-04] MEDS: BLOOD SUGAR DIAGNOSTIC 1 EACH STRIP IN SCH ×8 (16:32→23:00)
[2019-03-04] MEDS: FAMOTIDINE/PF INJ 20 MG/2 ML VIAL IV SCH (16:40)
[2019-03-04] MEDS: ENOXAPARIN SODIUM 40 MG/0.4 ML DISP.SYRIN SQ SCH (16:42)
--- NOTE | 2019-03-04 17:13 | NUR ---
INITIAL DIRECTOR GAME NOTE PT ADMITTED FROM ER FOR DKA. PT APPEARS IN NO DISTRESS, ON RA WITH NORMAL O2 SATURATION, SR ON MONITOR, NO WOUNDS OBSERVED, PT DOES NOT ANSWER QUESTIONS BUT ABLE TO FOLLOW SOME COMMANDS SUCH SQUEEZING RN's FINGERS WITH BILATERAL HANDS. VOLUNTARY MOVEMENT OBSERVED ON BLE AND WEAK BUE. PT OPENS EYES TO PAINFUL STIMULI. IN AND OUT CATH DONE PER DR. REGALADO'S RECOMMENDATION TO COLLECT URINE FOR UA AND TOXIC SCREEN. MRSA SWAB ALSO COLLECTED. WILL CONTINUE TO MONITOR PT FOR SAFETY AND COMFORT, CALL LIGHT WITHIN REACH, BED IN LOW AND LOCKED POSITION, HEAD OF BED ELEVATED, BED ALARM IN PLACE.
[2019-03-04] MEDS: ONDANSETRON HCL/PF 4 MG/2 ML VIAL IVP PRN (17:30)
[2019-03-04 17:31] LABS: APPEARANCE,URINE CLEAR (CLEAR); BILIRUBIN,URINE NEGATIVE (NEGATIVE); BLOOD, URINE NEGATIVE Ery/uL (NEGATIVE); COLOR,URINE YELLOW (YELLOW); KETONES,URINE 1+ (NEGATIVE); LEUKOCYTE ESTERASE ,URINE NEGATIVE (NEGATIVE); NITRITE, URINE NEGATIVE (NEGATIVE); PROTEIN,URINE NEGATIVE (NEGATIVE); UGLUCOSE 3+ mg/dL (NEGATIVE); UROBILINOGEN,URINE 0.2 EU/dL (0.2)
[2019-03-04 17:49] LABS: BACTERIA,URINE None seen /HPF (None Seen); RBC,URINE 0-2 /HPF (0-2); SQUAMOUS EPITHELIAL CELL,UR 0-2 /HPF (None Seen); WBC,URINE 0-2 /HPF (0-3)
[2019-03-04] MEDS: LEVOFLOXACIN 500 MG /D5W 100ML 500 MG in PREMIX 1 EA IV SCH (18:33)
[2019-03-04] MEDS: METOCLOPRAMIDE HCL 10 MG/2 ML VIAL IV PRN (18:36)
--- NOTE | 2019-03-04 19:12 | NUR ---
WEATHER ANCHOR NOTE PT'S CARE ENDORSED TO ANAM RUEDA FOR CONTINUITY OF CARE, PT'S , VIVIAN UPDATED REGARDING PT'S CONDITION. PT HAD EMESIS X3. DR. REGALADO CONTACTED AND SECOND ANTI EMETIC ORDER OBTAINED AND ADMINISTERED TO PT, EMESIS AFTER SECOND ANTIEMETIC ADMINISTRATION. PT WAS GIVEN MOUTH RINSE AND COOL TOWEL OVER HEAD AND BLANKET FOR COMFORT.
--- NOTE | 2019-03-04 19:35 | NUR ---
PT JUST HAD AN EPISODE OF EMESIS, SMALL AMOUNT OF GREEN LIQUID, ZOFRAN WAS GIVEN APPROX 2 HOURS AGO, SO NO MEDS TO BE GIVEN RIGHT NOW, ORAL CARE DONE, PT NOW RESTING AGAIN
--- NOTE | 2019-03-04 20:00 | NUR ---
DUPLICATOR PUNCH SET UP OPERATOR - NOTES - PT ADMITTED FOR DKA. PT APPEARS IN NO DISTRESS, ON RA WITH NORMAL O2 SATURATION, SR ON MONITOR, NO WOUNDS OBSERVED, PT DOES ANSWER QUESTIONS AND IS ABLE TO FOLLOW COMMANDS. PT IS IN SR, BP WNL. WILL CONTINUE TO MONITOR PT FOR SAFETY AND COMFORT, CALL LIGHT WITHIN REACH, BED IN LOW AND LOCKED POSITION, HEAD OF BED ELEVATED, BED ALARM IN PLACE.
--- NOTE | 2019-03-04 20:30 | NUR ---
PT HAD ANOTHER EPISODE OF EMESIS, SMALL AMOUNT GREEN COLOR
--- NOTE | 2019-03-04 21:08 | NUR ---
PT HAD ANOTHER EPISODE OF EMESIS, SMALL AMOUNT GREEN COLOR
[2019-03-04 21:46] LABS: CREATININE 1.1 mg/dL (0.6-1.3)
--- NOTE | 2019-03-04 22:06 | NUR ---
PT HAD ANOTHER EPISODE OF EMESIS, SMALL AMOUNT GREEN COLOR
--- NOTE | 2019-03-04 22:49 | NUR ---
AMANDA MENDEZ NOTIFIED OF CURRENT BMP AND BLOOD SUGAR, ORDER TO D/C INSULIN DRIP AND PLACE PT ON ACCUCHECK Q4H AGGRESSIVE SLIDING SCALE, WILL CONTINUE TO MONITOR
[2019-03-04] MEDS ORDERED: DEXTROSE 50%-WATER 50 ML DISP.SYRIN IV PRN (23:00)
[2019-03-04] MEDS: INSULIN REGULAR, HUMAN 100 UNIT/ML 3 ML VIAL SQ PRN (23:22)
[2019-03-05] VITALS (19 sets, daily range): BP systolic 125–168; BP diastolic 65–102
[2019-03-05] MEDS: ONDANSETRON HCL/PF 4 MG/2 ML VIAL IVP PRN ×3 (00:02→11:23)
[2019-03-05] MEDS ORDERED: LORAZEPAM INJ 2 MG/ML VIAL ONE (00:50)
[2019-03-05] MEDS ORDERED: LORAZEPAM INJ 2 MG/ML VIAL IV ONE (01:00)
[2019-03-05] MEDS: BLOOD SUGAR DIAGNOSTIC 1 EACH STRIP IN SCH ×6 (01:00→20:51)
[2019-03-05] MEDS: INSULIN REGULAR, HUMAN 100 UNIT/ML 3 ML VIAL SQ PRN ×4 (01:14→13:53)
[2019-03-05] MEDS ORDERED: INSULIN REGULAR, HUMAN 100 UNIT/ML 3 ML VIAL ONE (01:20)
[2019-03-05] MEDS: FAMOTIDINE/PF INJ 20 MG/2 ML VIAL IV SCH ×2 (04:04→15:20)
[2019-03-05 05:15] LABS: ALBUMIN 3.1 g/dL (3.4-5.0); BILIRUBIN,TOTAL 0.3 mg/dL (0.2-1.0); CALCIUM, SERUM 7.6 mg/dL (8.5-10.1); MAGNESIUM 1.7 mg/dL (1.8-2.4); PHOSPHORUS 2.3 mg/dL (2.5-4.9); POTASSIUM 3.4 mmol/L (3.5-5.1)
[2019-03-05] MEDS: IV NS 0.9% 1,000 ML IV SCH ×3 (06:44→23:45)
--- NOTE | 2019-03-05 07:05 | NUR ---
RN NOTES RECEIVED PT ON BED, A/Ox3, ON RA , NO SOB NOTED, ON TELE SR ,NO DISTRESS NOTED, L HAND AND L FA IV SITE G 18 CLEAN, DRY AND INTACT, NS AT 125CC/HR RUNNING , SR UP x3, CALL LIGHT WITHIN EASY REACH, BED LOCKED AND IN LOWEST POSITION, CONTINUE TO MONITOR
[2019-03-05] MEDS: METOCLOPRAMIDE HCL 10 MG/2 ML VIAL IV PRN ×2 (08:22→16:27)
[2019-03-05] MEDS: INSULIN GLARGINE, 100 UNIT/ML CARTRIDGE SQ SCH (08:45)
[2019-03-05] MEDS ORDERED: PANTOPRAZOLE 40 MG VIAL IV SCH (09:00)
[2019-03-05] MEDS ORDERED: NEXIUM 40 MG VIAL IV SCH (09:00)
[2019-03-05 09:07] LABS: ABG BASE EXCESS -1.7 mmol/L; ABG OXYGEN SATURATION 95.5 % (92.0-98.5); ABG PCO2 39.2 mmHg (35.0-45.0); ABG PH 7.388 (7.350-7.450); ABG PO2 82.5 mmHg (75.0-100.0); AaDO2 20.3 mmHg; COHb 0.2 % (0.5-1.5); MetHb 0.7 % (0.0-1.5); O2Hb 94.6 % (94.0-97.0); SITE, ABG Right Brachial; VENT MODE, BG ROOM AIR
[2019-03-05] MEDS: POTASSIUM CL. PREMIX PERIPHER. 50 ML IV SCH ×2 (09:45→10:59)
[2019-03-05] MEDS: Magnesium 1GM/D5W 100ML PREMIX 100 ML IV SCH ×2 (09:45→10:59)
--- NOTE | 2019-03-05 10:15 | NUR ---
MS RN NOTES REPORT RECEIVED FROM KATHLEEN @ [facility] [employer] [facility] REGARDING PATIENT NATALIIA VOGT.
--- NOTE | 2019-03-05 10:25 | NUR ---
RN NOTES REPORT GIVEN TO CATHERINE MENDIETA ON 3W , PT TRANSFERRED TO ROOM 314-2 MED-SURGE STATUS IN STABLE CONDITION WITH ALL THE BELONGINGS.
--- NOTE | 2019-03-05 10:25 | NUR ---
MS RN NOTES PATIENT ARRIVED FROM ICU VIA GURNEY WITH 2 CORROSION ENGINEER, REPORT GIVEN BY KATHLEEN. V/S WNL. A/O X 4. NO ACUTE DISTRESS. NO COMPLAIN OF PAIN OR DISCOMFORT AT THIS TIME. PATIENT ORIENTED TO UNIT, ROOM, STAFF, PLAN OF CARE AND VERBALIZED UNDERSTANDING. PATIENT AMBULATORY. SAFETY MEASURES IN PLACE, BED IN LOW LOCKED POSITION, SIDE RAILS UP X2, CALL LIGHT WITHIN EASY REACH. WILL CONTINUE TO MONITOR.
[2019-03-05] MEDS ORDERED: NAPROXEN 500 MG TABLET PO PRN (16:30)
[2019-03-05] MEDS ORDERED: IBUPROFEN 600 MG TABLET PO PRN (16:30)
[2019-03-05] MEDS ORDERED: BACLOFEN (10 MG) 10 MG TABLET PO PRN (17:00)
[2019-03-05] MEDS: LEVOFLOXACIN 500 MG /D5W 100ML 500 MG in PREMIX 1 EA IV SCH (17:27)
[2019-03-05] MEDS ORDERED: Sodium Phosphate 15 MMOL in IV D5W 250 ML IV ONE (17:30)
[2019-03-05] MEDS: REPAGLINIDE 0.5 MG TABLET PO SCH (17:41)
--- NOTE | 2019-03-05 19:11 | NUR ---
MS RN NOTES PATIENT IN BED RESTING COMFORTABLY IN MODERATE HIGH BACK REST. A/OX4. ON RA, TOLERATING WELL. IV ACCESS ON LEFT WRIST #18, LEFT FA #18 WITH NS @125ML/HR. PATENT AND INTACT. SAFETY MEASURES IN PLACE, BED IN LOW LOCKED POSITION, SIDE RAILS UP X2, CALL LIGHT WITHIN EASY REACH. AT BEDSIDE. WILL ENDORSE TO DATA NETWORK ARCHITECT NURSE FOR RENETTA.
--- NOTE | 2019-03-05 19:20 | NUR ---
MS/RN OPENING NOTES PT RECEIVED AWAKE, RESTING COMFORTABLY IN BED. VIVIAN AT BEDSIDE. PT IS A/OX3. ON ROOM AIR, BREATHING EVEN AND UNLABORED. IN NO ACUTE DISTRESS. DENIES SOB AND PAIN AT THIS TIME. FEELING SLIGHTLY NAUSEOUS, NOT TIME FOR REGLAN YET AND REFUSING ZOFRAN. STATES "IT MAKES ME FEEL MORE NAUSEOUS". NPO PER MD ORDER. IV TO LFA AND LEFT WRIST PATENT AND INTACT RUNNING IVF ORDERED. BED IN LOW/LOCKED POSITION WITH CALL LIGHT IN REACH. SEMI FOWLERS IN BED. BILAT. UPPER SIDE RAILS IN PLACE. WILL CONTINUE TO MONITOR
[2019-03-05] MEDS: ENOXAPARIN SODIUM 40 MG/0.4 ML DISP.SYRIN SQ SCH (20:52)
--- NOTE | 2019-03-05 21:37 | NUR ---
MS/RN NOTES PT C/O HEADACHE 03/17. PT NPO FOR N/V, NO IV PRN MEDS AVAILABLE. NOTIFIED AMANDA MENDEZ DNP. WITH ORDERS FOR NPO EXCEPT MEDS AND TO GIVE TYLENOL. DNP MADE AWARE THAT PT IS STILL NAUSEATED AND HAD A SMALL AMOUNT OF EMESIS, PT DOES NOT THINK HE WILL TOLERATE PO MEDS. WITH ORDERS FOR MORPHINE 2MG IV Q4H PRN AND REGLAN 10MG IV Q6H PRN. ORDERS NOTED AND WILL CARRY OUT.
[2019-03-05] MEDS: MORPHINE SULFATE INJ 2 MG/ML DISP.SYRIN IV PRN (21:57)
[2019-03-06] MEDS: BLOOD SUGAR DIAGNOSTIC 1 EACH STRIP IN SCH ×6 (00:19→21:03)
[2019-03-06] MEDS: METOCLOPRAMIDE HCL 10 MG/2 ML VIAL IV PRN ×3 (00:19→18:28)
--- NOTE | 2019-03-06 00:23 | NUR ---
MS/RN NOTES PT C/O NAUSEA. ADMINISTERED PRN REGLAN ORDERED. WILL MONITOR FOR EFFECTIVENESS
[2019-03-06] MEDS: FAMOTIDINE/PF INJ 20 MG/2 ML VIAL IV SCH ×2 (04:50→17:01)
[2019-03-06] MEDS: ONDANSETRON HCL/PF 4 MG/2 ML VIAL IVP PRN (04:50)
--- NOTE | 2019-03-06 05:05 | NUR ---
MS/RN NOTES PT WITH X2 EPISODES OF SMALL AMOUNT OF EMESIS. PRN ZOFRAN ADMINISTERED ORDERED.
[2019-03-06] MEDS: MORPHINE SULFATE INJ 2 MG/ML DISP.SYRIN IV PRN ×2 (05:39→10:27)
--- NOTE | 2019-03-06 05:40 | NUR ---
MS/RN NOTES PT C/O 03/17 ABDOMINAL PAIN. ADMINISTERED PRN MORPHINE ORDERED. BP 179/95, HR 98, SPO2 95% ON RA
--- NOTE | 2019-03-06 06:36 | NUR ---
MS/RN CLOSING NOTES PT RESTING COMFORTABLY IN BED. A/OX3. ON ROOM AIR, BREATHING EVEN AND UNLABORED. DENIES SOB AT THIS TIME. ABDOMINAL PAIN IMPROVED AFTER MORPHINE ADMINISTRATION. ON/OFF NAUSEA/VOMITING DURING SHIFT, DESPITE PRN REGLAN AND ZOFRAN. CLEAR GREEN/YELLOW EMESIS NOTED. ALL NEEDS MET AND ANTICIPATED. IV TO LFA AND LEFT HAND PATENT AND INTACT RUNNING IVF ORDERED. HOB ELEVATED AT ALL TIMES FOR ASPIRATION PRECAUTIONS. BED REMAINS IN LOW/LOCKED POSITION WITH CALL LIGHT IN REACH, BILAT. UPPER SIDE RAILS IN PLACE. WILL ENDORSE TO DAY SHIFT RN RENETTA.
--- NOTE | 2019-03-06 07:10 | NUR ---
MS RN NOTES PATIENT IN BED ALERT ORIENTED X 4. NO ACUTE DISTRESS NOTED. BREATHING UNLABORED. IV ACCESS PATENT AND INTACT, NO REDNESS OR SWELLING NOTED. SAFETY MEASURES IN PLACE. CALL LIGHT WITHIN REACH. WILL CONTINUE TO MONITOR ACCORDINGLY.
[2019-03-06 07:19] LABS: BASOPHILS % (AUTO) 0.5 % (0.0-2.0); EOSINOPHILS % (AUTO) 0.2 % (0.0-6.0); HEMATOCRIT 32 % (39-51); HEMOGLOBIN 10.8 g/dL (13.5-17.5); LYMPHOCYTES # (AUTO) 1.4 /CMM (0.8-4.8); MEAN CORPUSCULAR HGB CONC 34 g/dl (31.0-36.0); MEAN CORPUSCULAR VOLUME 84 fL (80-96); MONOCYTES # (AUTO) 0.4 /CMM (0.1-1.30); MONOCYTES % (AUTO) 4.4 % (2.0-12.0); NEUTROPHILS # (AUTO) 6.4 /CMM (1.8-8.9); NEUTROPHILS % (AUTO) 77.9 % (43.0-81.0); PLATELET COUNT (AUTO) 218 /CMM (150-450); RED BLOOD CELL COUNT(AUTO) 3.77 MIL/uL (4.5-6.0); WHITE BLOOD COUNT (AUTO) 8.2 K/uL (4.3-11.0)
[2019-03-06 07:48] LABS: CREATININE 0.8 mg/dL (0.6-1.3); MAGNESIUM 1.8 mg/dL (1.8-2.4); PHOSPHORUS 2.1 mg/dL (2.5-4.9); POTASSIUM 3.5 mmol/L (3.5-5.1)
[2019-03-06 08:06] VITALS: BP 169/61
--- NOTE | 2019-03-06 08:40 | NUR ---
MS RN NOTES SEEN AND EVALUATED BY DR THU MILLER WITH NEW ORDERS MADE TO CHANGE DIET TO CLEAR LIQUIDS AND DISCONTINUE LEVAQUIN IV. NOTED AND CARRIED OUT.
[2019-03-06] MEDS: LISINOPRIL (5MG) 5 MG TABLET PO SCH ×2 (09:00→09:54)
[2019-03-06] MEDS: REPAGLINIDE 0.5 MG TABLET PO SCH ×4 (09:00→17:59)
[2019-03-06] MEDS: IV NS 0.9% 1,000 ML IV SCH ×2 (09:33→18:00)
[2019-03-06] MEDS: INSULIN GLARGINE, 100 UNIT/ML CARTRIDGE SQ SCH (09:35)
--- NOTE | 2019-03-06 09:58 | NUR ---
MS RN NOTES PATIENT INITIALLY REFUSED TAKING REPAGLINIDE AND LISINOPRIL DESPITE OF EXPLANATION OF RISKS AND BENEFITS BUT PATIENT CHANGED HIS MIND AND SAID HE WANTS TO TAKE THE MEDICATIONS.
[2019-03-06] MEDS: INSULIN REGULAR, HUMAN 100 UNIT/ML 3 ML VIAL SQ PRN ×3 (13:52→21:03)
[2019-03-06] MEDS ORDERED: K PHOS NEUTRAL 250 MG TABLET PO ONE (14:00)
[2019-03-06 15:54] VITALS: BP_SYST 122; BP_SYST 172; BP_DIAS 63; BP_DIAS 99
--- NOTE | 2019-03-06 19:00 | NUR ---
MS RN NOTES PATIENT IN BED ALERT ORIENTED X 4. NO ACUTE DISTRESS NOTED. BREATHING UNLABORED. IV ACCESS PATENT AND INTACT, NO REDNESS OR SWELLING NOTED. DUE MEDICATIONS GIVEN, NO ASE NOTED. NEEDS ATTENDED AND ANTICIPATED. SAFETY MEASURES IN PLACE. CALL LIGHT WITHIN REACH. WILL ENDORSE TO NIGHT NURSE FOR CONTINUITY OF CARE.
--- NOTE | 2019-03-06 19:53 | NUR ---
MS DESCRIPTIVE CATALOG LIBRARIAN INITIAL NOTES SEEN PT IN BED WHILE GETTING REPORT FROM AM NURSE , HE'S LYING BED RESTING WITH EYES CLOSED BREATHING EVEN AND NON-LABORED NOT IN ANY ACUTE DISTRESS NOTED. HE STILL WITH IVF NS AT 125ML/HR INFUSING ON HIS LEFT WRIST PATENT AND INTACT. NO NV/ NOTED AT THIS TIME. KEPT HIM WARM AND COMFORTABLE AT ALL TIMES. PLACE CALL LIGHT AT REACH. WILL CONTINUE MONITORING .
[2019-03-06 19:57] VITALS: BP 134/81
[2019-03-06 20:32] VITALS: BP 134/81
--- NOTE | 2019-03-06 21:05 | NUR ---
ms keith notes lovenox given SQ as ordered on his left lower abdomen and witness by nurse camron/RN as ordered. blood sugar also checked 125 no insulin due at this time, no signs of hypo glycemia noted. pt still on IVF NS at 125ml/hr . will continue monitoring. place call light at reach.
[2019-03-06] MEDS: ENOXAPARIN SODIUM 40 MG/0.4 ML DISP.SYRIN SQ SCH (21:08)
[2019-03-07] MEDS: IV NS 0.9% 1,000 ML IV SCH ×4 (00:52→23:14)
[2019-03-07] MEDS: BLOOD SUGAR DIAGNOSTIC 1 EACH STRIP IN SCH ×6 (00:52→21:31)
[2019-03-07] MEDS: INSULIN REGULAR, HUMAN 100 UNIT/ML 3 ML VIAL SQ PRN ×5 (01:06→21:58)
--- NOTE | 2019-03-07 01:07 | NUR ---
ms analysis intern notes blood sugar checked done 129, no insulin due at this time. no signs of hypo glycemia noted will continue monitoring.
[2019-03-07] MEDS: MORPHINE SULFATE INJ 2 MG/ML DISP.SYRIN IV PRN ×3 (01:08→14:45)
[2019-03-07] MEDS: METOCLOPRAMIDE HCL 10 MG/2 ML VIAL IV PRN ×3 (01:09→22:00)
--- NOTE | 2019-03-07 01:10 | NUR ---
MS RN NOTE PT C/O ABD PAIN 03/17 PRN MORPHINE 2 MG IV GIVEN. PT C/O NAUSEA IV REGLAN GIVEN. WILL CONT TO MONITOR.
[2019-03-07] MEDS: FAMOTIDINE/PF INJ 20 MG/2 ML VIAL IV SCH ×2 (05:28→16:37)
[2019-03-07] MEDS: ONDANSETRON HCL/PF 4 MG/2 ML VIAL IVP PRN ×2 (05:28→17:19)
--- NOTE | 2019-03-07 05:28 | NUR ---
ms keith notes pt called and having n/v , Zofran given by another nurse rose IVP as ordered kept his HOB elevated . IVF still infusing. will continue monitoring.
--- NOTE | 2019-03-07 06:12 | NUR ---
traffic line painter notes blood sugar checked done 221, 8 units of insulin guven rose SQ as ordered. no signs of any cute distress noted. n/v relieved as of now. IVF still infusing. will continue monitoring.
--- NOTE | 2019-03-07 06:51 | NUR ---
ms launch manager closing notes pt back to rest after using the restroom . IVF re- connect again and kept him warm and comfortable at all times. no signs of any acute distress noted. all due meds given and all needs met. pt requested to have a shower after breakfast. Stable rose the night except the on and off n/v but relieved with his medication. place call light at reach endorse to am nurse for continuity of care.
[2019-03-07 07:26] LABS: CALCIUM, SERUM 8.2 mg/dL (8.5-10.1); CREATININE 0.9 mg/dL (0.6-1.3); POTASSIUM 3.3 mmol/L (3.5-5.1)
[2019-03-07 07:36] LABS: BASOPHILS % (AUTO) 0.2 % (0.0-2.0); HEMATOCRIT 34 % (39-51); HEMOGLOBIN 11.6 g/dL (13.5-17.5); LYMPHOCYTES # (AUTO) 1.1 /CMM (0.8-4.8); LYMPHOCYTES % (AUTO) 13.2 % (20.0-44.0); MEAN CORPUSCULAR HGB CONC 35 g/dl (31.0-36.0); MEAN CORPUSCULAR VOLUME 82 fL (80-96); MONOCYTES # (AUTO) 0.3 /CMM (0.1-1.30); MONOCYTES % (AUTO) 3.9 % (2.0-12.0); NEUTROPHILS # (AUTO) 6.7 /CMM (1.8-8.9); NEUTROPHILS % (AUTO) 82.7 % (43.0-81.0); PLATELET COUNT (AUTO) 238 /CMM (150-450); RED BLOOD CELL COUNT(AUTO) 4.07 MIL/uL (4.5-6.0); WHITE BLOOD COUNT (AUTO) 8.1 K/uL (4.3-11.0)
[2019-03-07 08:00] VITALS: BP 185/106
[2019-03-07] MEDS: REPAGLINIDE 0.5 MG TABLET PO SCH ×3 (09:02→17:10)
[2019-03-07] MEDS: LISINOPRIL (5MG) 5 MG TABLET PO SCH (09:03)
[2019-03-07] MEDS: INSULIN GLARGINE, 100 UNIT/ML CARTRIDGE SQ SCH (09:06)
[2019-03-07] MEDS ORDERED: POTASSIUM CHLORIDE 20 MEQ POWDER PACKET PO SCH (10:00)
--- NOTE | 2019-03-07 12:00 | NUR ---
patient unable to eat due to N/V. Dr.Andonian velasco
[2019-03-07 16:00] VITALS: BP 162/89
--- NOTE | 2019-03-07 19:14 | NUR ---
No signs of any acute distress noted. all due meds given and all needs attended. pt had shower after breakfast. Stable on room air. Patient unable to eat due to N/V which is relieved with Zofran . Call light in reach.Will endorse to next shift for continuity of care.
--- NOTE | 2019-03-07 19:45 | NUR ---
RN OPENING NOTES RECEIVED REPORT FROM [facility] ANAM MORRISON. FOUND Pt AWAKE, RESTING IN BED. VISITING AT BEDSIDE. NO S/S OF ACUTE DISTRESS OR SOB NOTED. Pt IS A/OX4, VERBAL, ABLE TO MAKE NEEDS KNOWN. ON CLEAR LIQUID DIET. IV ACCESS ON L WRIST #18G & LFA #18G; IVF NS @125ML/HR, INFUSING WELL. SAFETY MEASURES IN PLACE. BED LOW, LOCKED, HOB ELEVATED, SIDE RAILS UP, CALL LIGHT AND BEDSIDE TABLE WITHIN REACH. WILL CONTINUE TO MONITOR Pt's CONDITION AND SAFETY THROUGHOUT THE NIGHT.
[2019-03-07 20:00] VITALS: BP 173/86
--- NOTE | 2019-03-07 21:05 | NUR ---
RN NOTES BG 133. ADMINISTERED 2UN OF REG INSULIN PER SLIDING SCALE.
[2019-03-07] MEDS: KETOROLAC TROMETHAMINE INJ 30 MG/ML VIAL IV PRN (21:18)
[2019-03-07] MEDS: ENOXAPARIN SODIUM 40 MG/0.4 ML DISP.SYRIN SQ SCH (21:39)
--- NOTE | 2019-03-08 01:30 | NUR ---
RN NOTES BG 121. NO INSULIN COVERAGE NEEDED AT THIS TIME.
[2019-03-08] MEDS: BLOOD SUGAR DIAGNOSTIC 1 EACH STRIP IN SCH ×6 (01:44→22:00)
[2019-03-08] MEDS: ONDANSETRON HCL/PF 4 MG/2 ML VIAL IVP PRN ×4 (01:44→22:46)
[2019-03-08] MEDS: MORPHINE SULFATE INJ 2 MG/ML DISP.SYRIN IV PRN ×2 (02:26→18:37)
--- NOTE | 2019-03-08 05:30 | NUR ---
RN NOTES BG 173. ADMINISTERED 4UN OF REG INSULIN PER SLIDING SCALE. ON LT DELTOID.
[2019-03-08] MEDS: FAMOTIDINE/PF INJ 20 MG/2 ML VIAL IV SCH ×2 (05:35→16:13)
[2019-03-08] MEDS: INSULIN REGULAR, HUMAN 100 UNIT/ML 3 ML VIAL SQ PRN ×3 (05:48→22:01)
[2019-03-08] MEDS: KETOROLAC TROMETHAMINE INJ 30 MG/ML VIAL IV PRN ×3 (05:54→23:44)
[2019-03-08] MEDS: IV NS 0.9% 1,000 ML IV SCH ×2 (06:04→15:00)
--- NOTE | 2019-03-08 06:45 | NUR ---
RN CLOSING NOTES NO SIGNIFICANT CHANGES IN Pt's CONDITION. Pt CONTINUOUS TO C/O N/V THROUGHOUT THE NIGHT. NO S/S OF ACUTE DISTRESS OR SOB NOTED DURING THE NIGHT. Pt IS RESTING IN BED. RESPIRATIONS EVEN AND UNLABORED. SAFETY MEASURES IN PLACE. WILL ENDORSE TO DAYSHIFT RN FOR Pt's RENETTA.
[2019-03-08 07:03] LABS: CREATININE 0.8 mg/dL (0.6-1.3)
[2019-03-08 07:13] LABS: BASOPHILS % (AUTO) 0.1 % (0.0-2.0); HEMATOCRIT 35 % (39-51); HEMOGLOBIN 12.2 g/dL (13.5-17.5); LYMPHOCYTES # (AUTO) 0.8 /CMM (0.8-4.8); MEAN CORPUSCULAR HGB CONC 35 g/dl (31.0-36.0); MEAN CORPUSCULAR VOLUME 82 fL (80-96); MONOCYTES # (AUTO) 0.3 /CMM (0.1-1.30); MONOCYTES % (AUTO) 4.4 % (2.0-12.0); NEUTROPHILS # (AUTO) 5.7 /CMM (1.8-8.9); NEUTROPHILS % (AUTO) 83.5 % (43.0-81.0); PLATELET COUNT (AUTO) 255 /CMM (150-450); WHITE BLOOD COUNT (AUTO) 6.9 K/uL (4.3-11.0)
--- NOTE | 2019-03-08 07:27 | NUR ---
MS RN OPENING NOTES RECEIVED PT LAYING IN BED WITH HOB ELEVATED. AWAKE, ALERT AND RESPONSIVE. PT IS AFEBRILE. RESPIRATIONS ARE EVEN AND UNLABORED, NOT IN ANY ACUTE DISTRESS NOTED. PUPILS ARE REACTIVE TO LIGHT, BILATERAL HAND DIRECTOR OF STRATEGIC SOURCING ARE STRONG AND EQUAL. PT DENIES ANY PAIN, NO C/O SOB, N/V. IV SITE TO LEFT WRIST AND LFA INTACT, NO INFILTRATION NOTED. DRESSING KEPT CLEAN AND DRY. SAFETY MEASURES ARE IN PLACE. INSTRUCTED PT TO USE CALL LIGHT WHEN ASSISTANCE IS NEEDED, CALL LIGHT IS LEFT WITHIN REACH. WILL MONITOR THROUGHOUT SHIFT FOR CONTINUITY OF CARE.
[2019-03-08 08:00] VITALS: BP_SYST 164; BP_SYST 175; BP_DIAS 102; BP_DIAS 103
[2019-03-08] MEDS: REPAGLINIDE 0.5 MG TABLET PO SCH ×3 (08:30→17:15)
[2019-03-08] MEDS: LISINOPRIL (5MG) 5 MG TABLET PO SCH (08:30)
--- NOTE | 2019-03-08 08:30 | NUR ---
MS RN NOTES-- PT SEEN AND EXAMINED BY DR. MILLER.
[2019-03-08] MEDS: INSULIN GLARGINE, 100 UNIT/ML CARTRIDGE SQ SCH (08:33)
[2019-03-08] MEDS: POTASSIUM CL. PREMIX PERIPHER. 50 ML IV SCH ×6 (09:07→16:19)
[2019-03-08 12:00] VITALS: BP 153/84
[2019-03-08] MEDS: METOCLOPRAMIDE HCL 10 MG/2 ML VIAL IV PRN ×2 (12:01→18:37)
--- NOTE | 2019-03-08 15:29 | NUR ---
MS RN NOTES-- DUE FOR NEW NS IV 1L BAG. PT HAS BEEN ADMINISTERED 6 BAGS OF POTASSIUM CHL. 1L NS STILL FULL. WILL CONTINUE TO MONITOR.
[2019-03-08] MEDS: hydrALAZINE HCL IV 20 MG VIAL IV PRN (16:12)
--- NOTE | 2019-03-08 18:42 | NUR ---
MS RN CLOSING NOTES ALL DUE MEDS GIVEN, NEEDS MET AND RENDERED. PT IS A/O X4, AFEBRILE. RESPIRATIONS ARE EVEN AND UNLABORED, NOT IN ANY ACUTE DISTRESS NOTED. PT C/O PAIN 05/17, ADMINISTERED MORPHINE ORDERED. DENIES ANY SOB AT THIS TIME. IV SITE TO RAC 24G INTACT, NO INFILTRATION NOTED. DRESSING KEPT CLEAN AND DRY. VIVIAN AT BEDSIDE. REMINDED PT TO USE CALL LIGHT WHEN ASSISTANCE IS NEEDED, CALL LIGHT IS LEFT WITHIN REACH. WILL ENDORSE TO NEXT SHIFT FOR CONTINUITY OF CARE.
--- NOTE | 2019-03-08 19:05 | NUR ---
MS RN NOTES RECEIVED PT IN BED AWAKE AND ABLE TO MAKE NEEDS KNOWN WITH FAMILY AT BEDSIDE. PT A/O X3. RESPIRATIONS EVEN AND UNLABORED WITH NO S/S OF ACUTE DISTRESS OR SOB NOTED. NO COMPLAINTS OF PAIN AT THIS TIME. PT WITH LFA #24G RUNNING NS @125 ML/HR PATENT AND INTACT. SAFETY MEASURES IN PLACE WITH BED IN LOWEST LOCKED POSITION WITH SIDE RAILS UP X2. CALL LIGHT WITHIN REACH. WILL CONTINUE TO MONITOR.
[2019-03-08 20:10] VITALS: BP 145/85
[2019-03-08] MEDS: ENOXAPARIN SODIUM 40 MG/0.4 ML DISP.SYRIN SQ SCH (21:46)
[2019-03-09] MEDS: IV NS 0.9% 1,000 ML IV SCH ×4 (01:07→23:00)
[2019-03-09] MEDS: BLOOD SUGAR DIAGNOSTIC 1 EACH STRIP IN SCH ×6 (01:42→21:35)
[2019-03-09] MEDS: INSULIN REGULAR, HUMAN 100 UNIT/ML 3 ML VIAL SQ PRN ×4 (01:54→11:53)
[2019-03-09] MEDS: METOCLOPRAMIDE HCL 10 MG/2 ML VIAL IV PRN (03:29)
[2019-03-09] MEDS: FAMOTIDINE/PF INJ 20 MG/2 ML VIAL IV SCH ×2 (04:46→15:19)
--- NOTE | 2019-03-09 04:59 | NUR ---
MS RN NOTES PT REFUSED SLIDING SCALE COVERAGE INSULIN. PT STATED HE DOESN'T THINK HE NEEDS IT FOR THIS ONE BUT WILL TAKE IT THE NEXT TIME THE BLOOD SUGAR IS CHECK. PT BS WAS 144.
[2019-03-09 07:34] LABS: CALCIUM, SERUM 8.1 mg/dL (8.5-10.1); CREATININE 0.8 mg/dL (0.6-1.3); POTASSIUM 3.4 mmol/L (3.5-5.1)
[2019-03-09 07:35] LABS: BASOPHILS % (AUTO) 0.1 % (0.0-2.0); HEMATOCRIT 36 % (39-51); HEMOGLOBIN 12.4 g/dL (13.5-17.5); LYMPHOCYTES # (AUTO) 1.1 /CMM (0.8-4.8); LYMPHOCYTES % (AUTO) 15.7 % (20.0-44.0); MEAN CORPUSCULAR HGB CONC 35 g/dl (31.0-36.0); MEAN CORPUSCULAR VOLUME 82 fL (80-96); MONOCYTES # (AUTO) 0.4 /CMM (0.1-1.30); MONOCYTES % (AUTO) 5.9 % (2.0-12.0); NEUTROPHILS # (AUTO) 5.5 /CMM (1.8-8.9); NEUTROPHILS % (AUTO) 78.3 % (43.0-81.0); PLATELET COUNT (AUTO) 287 /CMM (150-450); RED BLOOD CELL COUNT(AUTO) 4.34 MIL/uL (4.5-6.0); WHITE BLOOD COUNT (AUTO) 7.1 K/uL (4.3-11.0)
--- NOTE | 2019-03-09 07:41 | NUR ---
MS RN NOTES PT IN BED AWAKE AND ABLE TO MAKE NEEDS KNOWN. PT A/O X3. RESPIRATIONS EVEN AND UNLABORED WITH NO S/S OF ACUTE DISTRESS OR SOB NOTED THROUGHOUT SHIFT. NO COMPLAINTS OF PAIN AT THIS TIME. PT WITH LFA #24G RUNNING NS @125 ML/HR PATENT AND INTACT. SAFETY MEASURES IN PLACE WITH BED IN LOWEST LOCKED POSITION WITH SIDE RAILS UP X2. CALL LIGHT WITHIN REACH. WILL ENDORSE TO ONCOMING NURSE FOR [place].
--- NOTE | 2019-03-09 07:51 | NUR ---
MS RN OPENING NOTES RECEIVED PT LAYING IN BED WITH HOB ELEVATED. AWAKE, ALERT AND RESPONSIVE. PT IS AFEBRILE. RESPIRATIONS ARE EVEN AND UNLABORED, NOT IN ANY ACUTE DISTRESS NOTED. PT DENIES ANY PAIN, NO C/O SOB. IV SITE TO RFA INTACT, NO INFILTRATION NOTED. DRESSING KEPT CLEAN AND DRY. SAFETY MEASURES ARE IN PLACE. INSTRUCTED PT TO USE CALL LIGHT WHEN ASSISTANCE IS NEEDED, CALL LIGHT IS LEFT WITHIN REACH. WILL MONITOR THROUGHOUT SHIFT FOR CONTINUITY OF CARE.
[2019-03-09 08:00] VITALS: BP 166/90
--- NOTE | 2019-03-09 08:40 | NUR ---
MS RN NOTES-- PT WAS SEEN AND EXAMINED BY DR. MILLER W/ ORDERS TO DISCONTINUE NAPROXEN AND IBUPROFEN AND NEW ORDERS FOR NORCO 5/325 1 TAB PO Q4H PRN. READ BACK AND VERIFIED, NOTED AND CARRIED OUT.
[2019-03-09] MEDS: REPAGLINIDE 0.5 MG TABLET PO SCH ×3 (08:47→16:47)
[2019-03-09] MEDS: LISINOPRIL (5MG) 5 MG TABLET PO SCH (08:47)
[2019-03-09] MEDS: KETOROLAC TROMETHAMINE INJ 30 MG/ML VIAL IV PRN (08:48)
[2019-03-09] MEDS: INSULIN GLARGINE, 100 UNIT/ML CARTRIDGE SQ SCH (08:52)
[2019-03-09] MEDS ORDERED: POTASSIUM CHLORIDE 10 MEQ/50 ML PREMIXED IVPB FOR PERIPHERAL LINE IV ONE (09:00)
[2019-03-09] MEDS: POTASSIUM CL. PREMIX PERIPHER. 50 ML IV SCH ×4 (10:19→13:58)
[2019-03-09] MEDS: SUCRALFATE 1 G/10 ML UDC GT SCH ×3 (11:21→21:36)
--- NOTE | 2019-03-09 12:27 | NUR ---
MS RN NOTES-- PT ABLE TO MAKE NEEDS KNOWN, NEEDS MET AND RENDERED. PT IS NOT IN ANY APPARENT DISTRESS NOTED. WILL CONTINUE TO MONITOR.
[2019-03-09] MEDS: HYDROCODONE/APAP 5/325MG 1 EACH TABLET PO PRN (13:15)
[2019-03-09] MEDS: ONDANSETRON HCL/PF 4 MG/2 ML VIAL IVP PRN (13:17)
[2019-03-09 16:00] VITALS: BP 154/80
[2019-03-09] MEDS: MORPHINE SULFATE INJ 2 MG/ML DISP.SYRIN IV PRN ×2 (16:48→22:10)
--- NOTE | 2019-03-09 17:09 | NUR ---
MS RN NOTES-- BLOOD SUGAR 101, NO INSULIN COVERAGE. NO S/SX OF HYPGOLYCEMIA. WILL CONTINUE TO MONITOR.
--- NOTE | 2019-03-09 18:36 | NUR ---
MS RN CLOSING NOTES ALL DUE MEDS GIVEN, NEEDS MET AND RENDERED. PT IS A/O X4, AFEBRILE. RESPIRATIONS ARE EVEN AND UNLABORED, NOT IN ANY ACUTE DISTRESS NOTED. PT DENIES ANY PAIN AT THIS TIME, NO C/O SOB. IV SITE TO L WRIST 20 INTACT, NO INFILTRATION NOTED. DRESSING KEPT CLEAN AND DRY. VIVIAN AT BEDSIDE. REMINDED PT TO USE CALL LIGHT WHEN ASSISTANCE IS NEEDED, CALL LIGHT IS LEFT WITHIN REACH. WILL ENDORSE TO NEXT SHIFT FOR CONTINUITY OF CARE.
--- NOTE | 2019-03-09 19:10 | NUR ---
MS RN NOTES RECEIVED PT IN BED AWAKE AND ABLE TO MAKE NEEDS KNOWN. PT A/O X3. RESPIRATIONS EVEN AND UNLABORED WITH NO S/S OF ACUTE DISTRESS OR SOB NOTED. NO COMPLAINTS OF PAIN AT THIS TIME. PT WITH LWRIST #20G PATENT AND INTACT AND RUNNING NS @125 ML/HR. SAFETY MEASURES IN PLACE WITH BED IN LOWEST LOCKED POSITION WITH SIDE RAILS UP X2. CALL LIGHT WITHIN REACH. WILL CONTINUE TO MONITOR.
[2019-03-09] MEDS: hydrALAZINE HCL IV 20 MG VIAL IV PRN (19:59)
[2019-03-09 20:00] VITALS: BP 167/88
--- NOTE | 2019-03-09 20:00 | NUR ---
MS RN NOTES PT PLACED ON TELE MONITORING AND GIVEN HYDRALAZINE FOR SBP 167. PT WITH SINUS WITH HR 90.
[2019-03-09] MEDS: ENOXAPARIN SODIUM 40 MG/0.4 ML DISP.SYRIN SQ SCH (21:36)
[2019-03-10] MEDS: ONDANSETRON HCL/PF 4 MG/2 ML VIAL IVP PRN ×2 (01:47→08:34)
[2019-03-10] MEDS: BLOOD SUGAR DIAGNOSTIC 1 EACH STRIP IN SCH ×6 (01:52→21:04)
--- NOTE | 2019-03-10 01:58 | NUR ---
MS RN NOTES PT REFUSED SLIDING SCALE INSULIN COVERAGE FOR BLOOD SUGAR OF 138. PT STATED HE WILL GET IT FOR NEXT BLOOD SUGAR CHECK.
[2019-03-10] MEDS: FAMOTIDINE/PF INJ 20 MG/2 ML VIAL IV SCH ×2 (04:48→16:38)
[2019-03-10] MEDS: INSULIN REGULAR, HUMAN 100 UNIT/ML 3 ML VIAL SQ PRN ×5 (05:10→21:07)
[2019-03-10] MEDS: IV NS 0.9% 1,000 ML IV SCH (06:28)
--- NOTE | 2019-03-10 06:45 | NUR ---
MS RN NOTES PT IN BED ASLEEP BUT EASILY AWOKEN VERBALLY OR BY TOUCH. PT A/O X3 AND ABLE TO MAKE NEEDS KNOWN. RESPIRATIONS EVEN AND UNLABORED WITH NO S/S OF ACUTE DISTRESS OR SOB NOTED THROUGHOUT SHIFT. NO COMPLAINTS OF PAIN AT THIS TIME. PT WITH LWRIST #20G PATENT AND INTACT AND RUNNING NS @125 ML/HR. SAFETY MEASURES IN PLACE WITH BED IN LOWEST LOCKED POSITION WITH SIDE RAILS UP X2. CALL LIGHT WITHIN REACH. WILL ENDORSE TO ONCOMING NURSE FOR RENETTA.
--- NOTE | 2019-03-10 07:32 | NUR ---
MS/RN OPENING NOTE PATIENT IN BED IN STABLE CONDITION. A/O X 3. NO SIGNS OF ACUTE DISTRESS. COMPLAIN OF NAUSEA/VOMITING. PER PATIENT HE IS NOT ABLE TO TOLERATE FULL LIQUIDS AT THIS TIME. WILL INFORM DR MILLER. ALL NEEDS ATTENDED TO. CALL LIGHT WITHIN REACH.WILL CONTINUE TO MONITOR TO ENSURE SAFETY.
[2019-03-10 07:47] LABS: BASOPHILS % (AUTO) 0.1 % (0.0-2.0); EOSINOPHILS % (AUTO) 0.1 % (0.0-6.0); HEMATOCRIT 35 % (39-51); HEMOGLOBIN 12.1 g/dL (13.5-17.5); LYMPHOCYTES # (AUTO) 1.1 /CMM (0.8-4.8); LYMPHOCYTES % (AUTO) 19.9 % (20.0-44.0); MEAN CORPUSCULAR HGB CONC 35 g/dl (31.0-36.0); MEAN CORPUSCULAR VOLUME 82 fL (80-96); MONOCYTES # (AUTO) 0.5 /CMM (0.1-1.30); MONOCYTES % (AUTO) 8.1 % (2.0-12.0); NEUTROPHILS # (AUTO) 4.2 /CMM (1.8-8.9); NEUTROPHILS % (AUTO) 71.8 % (43.0-81.0); PLATELET COUNT (AUTO) 282 /CMM (150-450); WHITE BLOOD COUNT (AUTO) 5.8 K/uL (4.3-11.0)
[2019-03-10 07:53] LABS: CALCIUM, SERUM 7.7 mg/dL (8.5-10.1); CREATININE 0.8 mg/dL (0.6-1.3); POTASSIUM 3.1 mmol/L (3.5-5.1)
--- NOTE | 2019-03-10 07:54 | NUR ---
MS/RN SEEN AND EXAMINED BY DR MILLER WITH ORDERS TO START PATIENT ON REGULAR DIET.
[2019-03-10 08:00] VITALS: BP 182/90
[2019-03-10] MEDS: SUCRALFATE 1 G/10 ML UDC GT SCH ×5 (08:04→21:12)
[2019-03-10] MEDS: hydrALAZINE HCL IV 20 MG VIAL IV PRN (08:05)
[2019-03-10] MEDS: REPAGLINIDE 0.5 MG TABLET PO SCH ×3 (08:05→16:38)
[2019-03-10] MEDS: LISINOPRIL (5MG) 5 MG TABLET PO SCH (08:06)
[2019-03-10] MEDS: INSULIN GLARGINE, 100 UNIT/ML CARTRIDGE SQ SCH (09:00)
[2019-03-10] MEDS: POTASSIUM CHLORIDE 20 MEQ TAB.PRT.SR PO SCH ×2 (11:17→12:14)
--- NOTE | 2019-03-10 13:11 | NUR ---
MS/RN SPOKE WITH DR MILLER AND NOTIFIED PATIENT NOTED EATING REGULAR FOOD WELL BUT WHEN NURSE IS NOT PRESENT IN ROOM AND 35 TO 40 MINUTES AFTER PATIENT WOULD CALL THE NURSE TO SHOW THE EMESIS POST EATING. PER DR MILLER CONTINUE TO MONITOR AND CONTINUE REGULAR DIET FOR NOW.
[2019-03-10] MEDS: IV NS 0.9% 1,000 ML IV PRN (14:37)
[2019-03-10 16:00] VITALS: BP 129/66
[2019-03-10 16:06] VITALS: BP 102/74
[2019-03-10] MEDS: MORPHINE SULFATE INJ 2 MG/ML DISP.SYRIN IV PRN ×2 (17:34→23:00)
--- NOTE | 2019-03-10 18:22 | NUR ---
MS/RN CLOSING NOTE PATIENT IN BED IN STABLE CONDITION. A/O X 4. NO SIGNS OF ACUTE DISTRESS. NO COMPLAIN OF PAIN OR DISCOMFORT. ALL NEEDS ATTENDED TO. CALL LIGHT WITHIN REACH. WILL ENDORSE TO NEXT SHIFT FOR CONTINUITY OF CARE.
--- NOTE | 2019-03-10 19:10 | NUR ---
MS RN OPENING NOTES Received patient sitting up in bed, alert, oriented x 4. Breathing even and unlabored. Not in any distress, on room air. No complaints of pain at this time. Peripheral IV infusing at 125mL/hr. Safety measures in place. Call light within reach, bed in low, locked position. Will continue to monitor accordingly
[2019-03-10 20:00] VITALS: BP 160/83
[2019-03-10] MEDS: ENOXAPARIN SODIUM 40 MG/0.4 ML DISP.SYRIN SQ SCH (21:05)
--- NOTE | 2019-03-10 21:07 | NUR ---
rn notes bsl- 167mg/dL. 4 units insulin given per sliding scale. Snacks provided. Will continue to monitor
--- NOTE | 2019-03-10 23:01 | NUR ---
RN NOTES Patient c/o of abdominal pain, 03/17. BP checked, 156/94. Morphine 2mg given as ordered. Will continue to monitor
[2019-03-11] VITALS: BP 141/74
[2019-03-11] MEDS: IV NS 0.9% 1,000 ML IV PRN ×2 (00:09→08:56)
[2019-03-11] MEDS: BLOOD SUGAR DIAGNOSTIC 1 EACH STRIP IN SCH ×6 (00:19→21:37)
[2019-03-11] MEDS: INSULIN REGULAR, HUMAN 100 UNIT/ML 3 ML VIAL SQ PRN ×5 (00:19→21:44)
--- NOTE | 2019-03-11 00:20 | NUR ---
RN NOTES BSL checked- 77mg/dL. No insulin coverage given as per sliding scale. Juice provided
[2019-03-11] MEDS: METOCLOPRAMIDE HCL 10 MG/2 ML VIAL IV PRN (02:13)
[2019-03-11] MEDS: MORPHINE SULFATE INJ 2 MG/ML DISP.SYRIN IV PRN (03:50)
--- NOTE | 2019-03-11 03:50 | NUR ---
RN NOTES Patient c/o abdominal pain, 04/17. V/S checked: BP 150/86. Morphine 2mg given as ordered. Will continue to monitor
[2019-03-11] MEDS: FAMOTIDINE/PF INJ 20 MG/2 ML VIAL IV SCH ×2 (04:09→15:00)
--- NOTE | 2019-03-11 04:25 | NUR ---
RN NOTES BSL checked- 126mg/dL. No insulin coverage given as per sliding scale.
[2019-03-11 06:09] LABS: BASOPHILS % (AUTO) 0.1 % (0.0-2.0); EOSINOPHILS % (AUTO) 0.2 % (0.0-6.0); HEMATOCRIT 34 % (39-51); HEMOGLOBIN 11.9 g/dL (13.5-17.5); LYMPHOCYTES # (AUTO) 1.4 /CMM (0.8-4.8); LYMPHOCYTES % (AUTO) 25.9 % (20.0-44.0); MEAN CORPUSCULAR HGB CONC 35 g/dl (31.0-36.0); MEAN CORPUSCULAR VOLUME 82 fL (80-96); MONOCYTES # (AUTO) 0.5 /CMM (0.1-1.30); MONOCYTES % (AUTO) 8.8 % (2.0-12.0); NEUTROPHILS # (AUTO) 3.5 /CMM (1.8-8.9); PLATELET COUNT (AUTO) 272 /CMM (150-450); RED BLOOD CELL COUNT(AUTO) 4.15 MIL/uL (4.5-6.0); WHITE BLOOD COUNT (AUTO) 5.3 K/uL (4.3-11.0)
[2019-03-11 06:30] LABS: CALCIUM, SERUM 7.7 mg/dL (8.5-10.1); CREATININE 0.7 mg/dL (0.6-1.3); POTASSIUM 3.1 mmol/L (3.5-5.1)
--- NOTE | 2019-03-11 06:58 | NUR ---
MS RN CLOSING NOTES Patient still sleeping in bed, easily arousable. Breathing even and unlabored. No distress noted, on room air. No acute changes overnight. Peripheral IV infusing at 125mL/hr. All needs attended. Safety measures in place. Call light within reach, bed in low, locked position. Will endorse RENETTA to oncoming RN
--- NOTE | 2019-03-11 07:15 | NUR ---
RN MS OPENING NOTES Patient received on room air, no sob noted, patient remains a/o x4. Patient's left wrist #20 remains patent at this time, NS @ 125 mL per hour. Patient denies pain at this time. Patient lying down comfortably on bed. No recent n/v episode. Bed at the lowest setting, call light within reach, side rails up x2.
[2019-03-11 08:00] VITALS: BP 149/95
[2019-03-11] MEDS: SUCRALFATE 1 G/10 ML UDC GT SCH ×4 (08:11→21:27)
[2019-03-11] MEDS: REPAGLINIDE 0.5 MG TABLET PO SCH ×3 (08:12→16:46)
[2019-03-11] MEDS: LISINOPRIL (5MG) 5 MG TABLET PO SCH (08:12)
[2019-03-11] MEDS: INSULIN GLARGINE, 100 UNIT/ML CARTRIDGE SQ SCH (08:14)
[2019-03-11] MEDS ORDERED: POTASSIUM CL. PREMIX PERIPHER. 50 ML IV SCH (08:30)
[2019-03-11] MEDS: POTASSIUM CHLORIDE 20 MEQ TAB.PRT.SR PO SCH ×2 (10:09→10:44)
[2019-03-11] MEDS ORDERED: POTASSIUM CHLORIDE 10 MEQ TABLET.SA PO ONE (11:30)
--- NOTE | 2019-03-11 15:09 | NUR ---
rn ms notes Report given to oniel JACKSON
--- NOTE | 2019-03-11 15:21 | NUR ---
MS RN NOTES-- RECEIVED REPORT FROM ANAM VAZQUEZ. RECEIVED PT LAYING IN BED WITH HOB ELEVATED. AWAKE, ALERT AND RESPONSIVE. PT IS AFEBRILE. RESPIRATIONS ARE EVEN AND UNLABORED, NOT IN ANY ACUTE DISTRESS NOTED. PT DENIES ANY PAIN, NO C/O SOB. IV SITE TO LEFT WRIST INTACT, NO INFILTRATION NOTED. DRESSING KEPT CLEAN AND DRY. SAFETY MEASURES ARE IN PLACE. INSTRUCTED PT TO USE CALL LIGHT WHEN ASSISTANCE IS NEEDED, CALL LIGHT IS LEFT WITHIN REACH. WILL MONITOR THROUGHOUT SHIFT FOR CONTINUITY OF CARE.
[2019-03-11 15:31] VITALS: BP 146/90
[2019-03-11] MEDS: HYDROCODONE/APAP 5/325MG 1 EACH TABLET PO PRN (16:46)
--- NOTE | 2019-03-11 16:46 | NUR ---
ms rn notes-- blood sugar 112,no insulin coverage. no s/sx of hypoglycemia. will continue to monitor.
--- NOTE | 2019-03-11 16:52 | NUR ---
MS RN NOTES-- LEFT ARM NOTED TO BE SWOLLEN. IV ACCESS REMOVED, APPLIED PRESSURE AND TOLERATED WELL. PT REFUSED NEW PERIPHERAL IV INSERTION. EXPLAINED THE IMPORTANCE FOR HAVING A PERIPHERAL FOR HYDRATION, PT STATED "ILL JUST DRINK WATER."
--- NOTE | 2019-03-11 18:15 | NUR ---
ms rn notes-- explained to the pt the importance of new peripheral iv insertion for hydration. pt stated, "no not now."
--- NOTE | 2019-03-11 18:33 | NUR ---
MS RN CLOSING NOTES ALL DUE MEDS GIVEN, NEEDS MET AND RENDERED. PT IS A/O X4, AFEBRILE. RESPIRATIONS ARE EVEN AND UNLABORED, NOT IN ANY ACUTE DISTRESS NOTED. DENIES ANY PAIN, NO C/O SOB, N/V AT THIS TIME. NO IV ACCESS. EXPLAINED AGAIN THE IMPORTANCE OF NEW PIERPHERAL IV INSERTION FOR HYDRATION, PT STILL REFUSED. PT STATED "I WILL JUST DRINK MUCH WATER I CAN." REMINDED PT TO USE CALL LIGHT WHEN ASSISTANCE IS NEEDED, CALL LIGHT IS LEFT WITHIN REACH. WILL ENDORSE TO NEXT SHIFT FOR CONTINUITY OF CARE.
--- NOTE | 2019-03-11 19:30 | NUR ---
RN NOTES RECEIVED PATIENT AWAKE LYING IN BED, RESTING COMFORTABLY, STILL DOESN'T WANT NEW IV INSERTION / ACCESS, ENCOURAGE PATIENT TO INCREASE FLUID INTAKE, CALL LIGHT WITHIN EASY REACH, SAFETY MEASURES IN PLACE, DENIES ANY PAIN AT THIS TIME, DENIES NAUSEA AND VOMITING AT THIS TIME, WILL CONTINUE TO MONITOR ACCORDINGLY.
[2019-03-11 20:00] VITALS: BP 137/78
[2019-03-11 20:14] VITALS: BP 137/78
[2019-03-11] MEDS: ENOXAPARIN SODIUM 40 MG/0.4 ML DISP.SYRIN SQ SCH (21:24)
[2019-03-11] MEDS ORDERED: ZOLPIDEM TARTRATE 5 MG TABLET PO PRN (22:00)
[2019-03-12] MEDS: BLOOD SUGAR DIAGNOSTIC 1 EACH STRIP IN SCH ×6 (01:11→20:36)
[2019-03-12] MEDS: INSULIN REGULAR, HUMAN 100 UNIT/ML 3 ML VIAL SQ PRN ×5 (01:17→20:39)
[2019-03-12] MEDS: FAMOTIDINE/PF INJ 20 MG/2 ML VIAL IV SCH ×2 (04:00→17:00)
--- NOTE | 2019-03-12 04:51 | NUR ---
RN NOTES PATIENT REFUSED IV INSERTION, ENCOURAGED TO INCREASE ORAL FLUID INTAKE, DUE MEDS FAMOTIDINE NOT GIVEN PATIENT REFUSED WELL. WILL CONTINUE TO MONITOR.
--- NOTE | 2019-03-12 06:37 | NUR ---
RN NOTES ALL NEEDS ATTENDED, ABLE TO REST AND SLEEP AT INTERVALS, ENCOURAGED TO INCREASE ORAL FLUID INTAKE, SAFETY MEASURES IN PLACE, CALL LIGHT WITHIN EASY REACH. WILL ENDORSED TO AM NURSE FOR CONTINUITY OF CARE.
[2019-03-12 07:30] LABS: CREATININE 0.7 mg/dL (0.6-1.3)
--- NOTE | 2019-03-12 07:30 | NUR ---
MS RN OPENING NOTES RECEIVED PATIENT IN BED ASLEEP, AROUSABLE TO VERBAL AND TACTILE STIMULI. HOB ELEVATED. NO SOB. DENIES ANY C/O PAIN NOR DISCOMFORT AT THIS TIME. NO N/V. ENCOURAGE INCREASE FLUID INTAKE. BED IN LOWEST POSITION .CALL LIGHT WITHIN REACH. ABLE TO VERBALIZE NEEDS.
[2019-03-12 07:36] LABS: BASOPHILS % (AUTO) 0.2 % (0.0-2.0); EOSINOPHILS % (AUTO) 0.7 % (0.0-6.0); HEMATOCRIT 35 % (39-51); HEMOGLOBIN 12.2 g/dL (13.5-17.5); LYMPHOCYTES # (AUTO) 1.8 /CMM (0.8-4.8); LYMPHOCYTES % (AUTO) 30.7 % (20.0-44.0); MEAN CORPUSCULAR HGB CONC 35 g/dl (31.0-36.0); MEAN CORPUSCULAR VOLUME 82 fL (80-96); MONOCYTES # (AUTO) 0.5 /CMM (0.1-1.30); MONOCYTES % (AUTO) 8.2 % (2.0-12.0); NEUTROPHILS # (AUTO) 3.5 /CMM (1.8-8.9); NEUTROPHILS % (AUTO) 60.2 % (43.0-81.0); PLATELET COUNT (AUTO) 288 /CMM (150-450); RED BLOOD CELL COUNT(AUTO) 4.28 MIL/uL (4.5-6.0); WHITE BLOOD COUNT (AUTO) 5.8 K/uL (4.3-11.0)
--- NOTE | 2019-03-12 07:45 | NUR ---
MS RN CLOSING NOTES: PT ASLEEP AT THIS TIME, AROUSABLE. NO SOB OBSERVED. HOB ELEVATED. DENIES ANY C/O PAIN NOR DISCOMFORT. NO C/O N/V. RIGHT AC #22 INTACT AND PATENT INFUSING NS @ 125ML/HR MAXWELL WELL. BED IN LOW POSITION. PATIENT COMPLETED ALL 6 BAGS OF POTASSIUM CHLORIDE 10MEQ/50ML ORDERED WITHOUT C/O DISCOMFORT NOR S/S OF COMPLICATIONS. PATIENT REQUIRED MULTIPLE ENCOURAGEMENTS WITH PO INTAKE AND ADL'S. IN NO APPERENT DISTRESS. BED IN LOWEST POSITION. CALL LIGHT WITHIN REACH. BED SIDERAILS UP X2. ENDORSED TO ONCOMING SHIFT. Addendum: 03/12/19 at 2018 by JOELLE VELASQUEZ RN ERROR IN DOCUMENTATION ABOVE.
--- NOTE | 2019-03-12 08:30 | NUR ---
MS RN NOTES SEEN AND EXAMINED BY DR. MILLER.
[2019-03-12] MEDS: SUCRALFATE 1 G/10 ML UDC GT SCH ×4 (08:35→21:04)
[2019-03-12] MEDS: MORPHINE SULFATE INJ 2 MG/ML DISP.SYRIN IV PRN (08:39)
[2019-03-12] MEDS: REPAGLINIDE 0.5 MG TABLET PO SCH ×3 (08:53→17:01)
[2019-03-12] MEDS: LISINOPRIL (5MG) 5 MG TABLET PO SCH (08:54)
[2019-03-12] MEDS: ONDANSETRON HCL/PF 4 MG/2 ML VIAL IVP PRN (08:54)
[2019-03-12] MEDS: POTASSIUM CL. PREMIX PERIPHER. 50 ML IV SCH ×6 (08:55→15:52)
--- NOTE | 2019-03-12 09:00 | NUR ---
MS RN NOTES PATIENT EATING BREAKFAST. EDUCATED PATIENT REGARDING MEDICATION AND DR. MILLER SPOKE TO PATIENT REGARDING SUPPLEMENTING POTASSIUM. PER PATIENT, STATED, " I CAN'T KEEP ANYTHING RIGHT NOW." MD DISCUSSED WITH PATIENT REGARDING MEDICATION THROUGH IV AND STARTING IV LINE.
[2019-03-12] MEDS: INSULIN GLARGINE, 100 UNIT/ML CARTRIDGE SQ SCH (09:03)
[2019-03-12] MEDS: IV NS 0.9% 1,000 ML IV PRN (11:09)
[2019-03-12] MEDS: METOCLOPRAMIDE HCL 10 MG/2 ML VIAL IV PRN (17:00)
--- NOTE | 2019-03-12 19:27 | NUR ---
MS RN OPENING NOTES: RECEIVED PT ON ROOM AIR AND IS TOLERATING WELL. PT ASLEEP AT THIS TIME AND RESTING COMFORTABLY. PT HAS IV ON R AC #22G AND IS BEING INFUSED WITH IV NS AT 125ML/HR. BED KEPT IN LOW, LOCKED POSITION, AND SIDE RAILS X 2UP. WILL CONTINUE TO MONITOR PT.
--- NOTE | 2019-03-12 19:45 | NUR ---
MS RN CLOSING NOTES: PT ASLEEP AT THIS TIME, AROUSABLE. NO SOB OBSERVED. HOB ELEVATED. DENIES ANY C/O PAIN NOR DISCOMFORT. NO C/O N/V. RIGHT AC #22 INTACT AND PATENT INFUSING NS @ 125ML/HR MAXWELL WELL. BED IN LOW POSITION. PATIENT COMPLETED ALL 6 BAGS OF POTASSIUM CHLORIDE 10MEQ/50ML ORDERED WITHOUT C/O DISCOMFORT NOR S/S OF COMPLICATIONS. PATIENT REQUIRED MULTIPLE ENCOURAGEMENTS WITH PO INTAKE AND ADL'S. IN NO APPERENT DISTRESS. BED IN LOWEST POSITION. CALL LIGHT WITHIN REACH. BED SIDERAILS UP X2. ENDORSED TO ONCOMING SHIFT.
[2019-03-12 20:06] VITALS: BP 137/73
[2019-03-12] MEDS: ENOXAPARIN SODIUM 40 MG/0.4 ML DISP.SYRIN SQ SCH (20:31)
--- NOTE | 2019-03-12 20:44 | NUR ---
MS RN NOTES: BLOOD SUGAR THIS PM WAS 164. 4 UNITS OF INSULIN WAS ADMINISTERED. MILK PROVIDED AND CRACKERS REQUESTED. WILL CONTINUE TO MONITOR.
[2019-03-13] MEDS: BLOOD SUGAR DIAGNOSTIC 1 EACH STRIP IN SCH ×3 (01:30→09:21)
[2019-03-13] MEDS: IV NS 0.9% 1,000 ML IV PRN (01:46)
[2019-03-13] MEDS: INSULIN REGULAR, HUMAN 100 UNIT/ML 3 ML VIAL SQ PRN ×3 (02:13→09:29)
[2019-03-13] MEDS: FAMOTIDINE/PF INJ 20 MG/2 ML VIAL IV SCH (04:15)
[2019-03-13] MEDS: HYDROCODONE/APAP 5/325MG 1 EACH TABLET PO PRN (05:18)
[2019-03-13] MEDS: ONDANSETRON HCL/PF 4 MG/2 ML VIAL IVP PRN (05:18)
--- NOTE | 2019-03-13 05:28 | NUR ---
MS RN NOTES: PT FEELING NAUSEOUS. PT WAS ADMINISTERED ZOFRAN 4MG IV. WILL CONTINUE TO MONITOR.
--- NOTE | 2019-03-13 05:39 | NUR ---
MS RN NOTES: PT HAD AN EPISODE OF VOMITING. BLOOD SUGAR WAS 137. WILL HOLD 2 UNITS OF INSULIN FOR NOW PT DOES NOT APPEAR LIKE HE CAN TOLERATE ANY FLUIDS OR SNACKS DOWN AT THIS TIME. WILL CONTINUE TO MONITOR.
[2019-03-13] MEDS: MORPHINE SULFATE INJ 2 MG/ML DISP.SYRIN IV PRN (06:00)
--- NOTE | 2019-03-13 06:03 | NUR ---
MS RN NOTES: WITNESSED PT HAVE EMESIS AGAIN. PT NOW COMPLAINING OF 10/10 AB PAIN. PT THREW UP NORCO 5. PT WAS ADMINISTERED MORPHINE 2MG IV. WILL CONTINUE TO MONITOR.
--- NOTE | 2019-03-13 06:41 | NUR ---
MS RN CLOSING NOTES: ALL NEEDS WERE ATTENDED AND ANTICIPATED FOR. PT RESTING COMFORTABLY IN BED AT THIS TIME. PT HAS IV ON R AC #22G AND IS BEING INFUSED WITH IV NS AT 125ML/HR. BED KEPT IN LOW, LOCKED POSITION, AND SIDE RAILS X 2UP. WILL ENDORSE TO AM NURSE FOR RENETTA.
[2019-03-13 07:00] LABS: BASOPHILS % (AUTO) 0.2 % (0.0-2.0); EOSINOPHILS % (AUTO) 0.8 % (0.0-6.0); HEMATOCRIT 35 % (39-51); HEMOGLOBIN 12.1 g/dL (13.5-17.5); LYMPHOCYTES # (AUTO) 1.9 /CMM (0.8-4.8); LYMPHOCYTES % (AUTO) 35.8 % (20.0-44.0); MEAN CORPUSCULAR HGB CONC 35 g/dl (31.0-36.0); MEAN CORPUSCULAR VOLUME 81 fL (80-96); MONOCYTES # (AUTO) 0.4 /CMM (0.1-1.30); MONOCYTES % (AUTO) 7.9 % (2.0-12.0); NEUTROPHILS # (AUTO) 2.9 /CMM (1.8-8.9); NEUTROPHILS % (AUTO) 55.3 % (43.0-81.0); PLATELET COUNT (AUTO) 296 /CMM (150-450); RED BLOOD CELL COUNT(AUTO) 4.27 MIL/uL (4.5-6.0); WHITE BLOOD COUNT (AUTO) 5.3 K/uL (4.3-11.0)
[2019-03-13 07:01] LABS: CALCIUM, SERUM 8.3 mg/dL (8.5-10.1); CREATININE 0.8 mg/dL (0.6-1.3); POTASSIUM 3.4 mmol/L (3.5-5.1)
--- NOTE | 2019-03-13 07:33 | NUR ---
MS RN OPENING NOTES RECEIVED PATIENT ASLEEP IN BED, AROUSABLE. HOB ELEVATED. DENIES ANY C/O PAIN NOR DISCOMFORT AT THIS TIME. DENIES ANY C/O N/V AT THIS TIME. RIGHT AC #22 INTACT AND PATENT INFUSING NS @ 125 ML/HR MAXWELL WELL. BED IN LOWEST POSITION. CALL LIGHT WITHIN REACH. ABLE TO VERBALIZE NEEDS.
[2019-03-13] MEDS: SUCRALFATE 1 G/10 ML UDC GT SCH ×2 (08:27→11:38)
--- NOTE | 2019-03-13 09:00 | NUR ---
MS RN NOTES PATIENT SITTING IN CHAIR EATING BREAKFAST AND CONVERSING AND LAUGHING WITH ROOMMATE. DENIES ANY C/O PAIN NOR DISCOMFORT AT THIS TIME. PER PATIENT, " I FEEL MUCH BETTER NOW AND I'M GOING TO TAKE A SHOWER LATER. HOPEFULLY I CAN GO HOME TODAY."
[2019-03-13] MEDS: METOCLOPRAMIDE HCL 10 MG/2 ML VIAL IV PRN (09:21)
[2019-03-13] MEDS: REPAGLINIDE 0.5 MG TABLET PO SCH (09:22)
[2019-03-13] MEDS: LISINOPRIL (5MG) 5 MG TABLET PO SCH (09:22)
[2019-03-13] MEDS: INSULIN GLARGINE, 100 UNIT/ML CARTRIDGE SQ SCH (09:24)
[2019-03-13 10:11] VITALS: BP 133/93
[2019-03-13] MEDS ORDERED: ERYT250C68 PO (10:22)
[2019-03-13] MEDS ORDERED: METO-295 PO (10:22)
[2019-03-13] MEDS ORDERED: POTASSIUM CHLORIDE 20 MEQ TAB.PRT.SR PO ONE (10:30)
--- NOTE | 2019-03-13 12:50 | NUR ---
NS RB DISCHARGE/CLOSING NOTES PATIENT WITH ORDER FOR DISCHARGED. AND SON AT BEDSIDE. ALERT AND ORIENTED X4. PATIENT SHOWERED WITHOUT PROBLEMS. INDEPENDENT WITH ADLS WITH STEADY GAIT. NO WEAKNESS OBSERVED. DENIES ANY C/O PAIN, DISCOMFORT, N/V. DISCHARGE INSTRUCTIONS AND DISCHARGED PACKET GIVEN TO PATIENT INCLUDING PRESCRIPTION. PATIENT VERBALIZES UNDERSTANDING OF EDUCATION AND INSTRUCTIONS GIVEN AND DISCUSSED. PATIENT APPRECIATIVE OF ALL CARE GIVEN BY STAFF DURING COURSE OF HOSPITALIZATION PER PATIENT AND , VIVIAN. RIGHT AC IV CATHETER REMOVED WITH CATHETER TIP IN PLACE WITH DRESSING APPLIED TO SITE. ALL BELONGINGS ACCOUNTED FOR. V/S FOLLOWS B/P: 134/78; HR: 72; R: 18; T: 98.7; PAIN 0/10 SPO2 ROOM AIR 99%. PATIENT LEFT IN STABLE CONDITION WITH AND SON VIA PRIVATE VEHICLE.
[2019-03-13] MEDS ORDERED: ERYTHROMYCIN BASE (250 MG) 250 MG CAPSULE.DR PO SCH (13:00)
== END 2019-03-13 13:15 | disposition home or self-care (01) | DRG 420 ==
LOC: ER 12:44 → ICU 14:35 → MED 03-05 10:14
PROVIDERS: ADMIT Student in an Organized Health Care Education/Training Program; ATTEND Nurse Practitioner Acute Care
DX: E11.10 Type 2 diabetes mellitus with ketoacidosis without coma (principal); G93.41 Metabolic encephalopathy; J15.9 Unspecified bacterial pneumonia; E87.0 Hyperosmolality and hypernatremia; E44.1 Mild protein-calorie malnutrition; K31.84 Gastroparesis; E83.42 Hypomagnesemia; E86.1 Hypovolemia; E11.43 Type 2 diabetes mellitus with diabetic autonomic (poly)neuropathy; D63.8 Anemia in other chronic diseases classified elsewhere; I10 Essential (primary) hypertension; E87.6 Hypokalemia; Z79.4 Long term (current) use of insulin; Z79.899 Other long term (current) drug therapy; Z91.19 Patient's noncompliance with other medical treatment and regimen; Z91.14 Patient's other noncompliance with medication regimen; I25.10 Atherosclerotic heart disease of native coronary artery without angina pectoris; G43.A0 Cyclical vomiting, in migraine, not intractable
CPT/HCPCS: 36415; 36600; 70450-TC; 71045-TC; 80048-TC; 80053-TC; 80076-TC; 80305; 81000-TC; 82803-TC; 82962-TC; 83690-TC; 83735-TC; 84100-TC; 84484-TC; 85025-TC; 87081-TC; 97116-TC; 97530-TC; A4216; A9563; G0378; G0480; J0360; J1650; J1815; J1885; J1956; J2060; J2270; J2405; J2765; J3475; J3480; J3490; J7030; J7050; J7060

== ENCOUNTER 2019-04-15 21:00 | Emergency (ER) | payer MEDICAID, OTHER ==
[~2019-04-15] VITALS: Ht 167.6 cm; Wt 62.1 kg
[~2019-04-15 21:00] MED LIST changes: +ERYT250C68 PO; +HYDR-3972 PO; +IBUP-1955 PO; +METO-295 PO
--- NOTE | 2019-04-15 21:17 | NUR ---
BS 460
--- NOTE | 2019-04-15 21:19 | NUR ---
BIBS REPORTED HE JUAN MANUEL OUT OF INSULIN AND HIS PO ORAL DIABETIC MEDICATION. HE GOT LAST DOSE OF BOTH HIS MEDS LAST NIGHT AND WAS NOT ABLE TO MAKE A REFILL TODAY. NO OTHER COMPLAINT EXCEPT A MILD HEADACHE. - WEAKNESS, - POLYURIA OR POLYPEPSIA. MD AT THE BED SIDE,
[2019-04-15] MEDS ORDERED: IV NS 0.9% 1,000 ML BAG IV ONE (21:30)
[2019-04-15 21:54] LABS: BASOPHILS % (AUTO) 0.9 % (0.0-2.0); EOSINOPHILS % (AUTO) 2.1 % (0.0-6.0); HEMATOCRIT 33 % (39-51); LYMPHOCYTES # (AUTO) 1.4 /CMM (0.8-4.8); LYMPHOCYTES % (AUTO) 25.9 % (20.0-44.0); MEAN CORPUSCULAR HGB CONC 34 g/dl (31.0-36.0); MEAN CORPUSCULAR VOLUME 84 fL (80-96); MONOCYTES # (AUTO) 0.3 /CMM (0.1-1.30); MONOCYTES % (AUTO) 4.7 % (2.0-12.0); NEUTROPHILS # (AUTO) 3.6 /CMM (1.8-8.9); NEUTROPHILS % (AUTO) 66.4 % (43.0-81.0); PLATELET COUNT (AUTO) 273 /CMM (150-450); RED BLOOD CELL COUNT(AUTO) 3.95 MIL/uL (4.5-6.0); WHITE BLOOD COUNT (AUTO) 5.5 K/uL (4.3-11.0)
[2019-04-15 22:00] LABS: CALCIUM, SERUM 8.4 mg/dL (8.5-10.1); CREATININE 1.2 mg/dL (0.6-1.3); POTASSIUM 4.9 mmol/L (3.5-5.1)
--- NOTE | 2019-04-15 22:45 | NUR ---
IV removed. Catheter intact and site benign. Pressure and 4x4 applied to site. No bleeding noted.Patient discharged to home in stable condition. Rx and Written and verbal after care instructions given. Patient verbalizes understanding of instruction.
[2019-04-15 23:19] VITALS: BP 153/87
== END 2019-04-15 22:45 | disposition home or self-care (01) ==
LOC: ER 21:02
DX: E11.65 Type 2 diabetes mellitus with hyperglycemia (principal); I10 Essential (primary) hypertension; I25.10 Atherosclerotic heart disease of native coronary artery without angina pectoris; Z88.0 Allergy status to penicillin; Z79.4 Long term (current) use of insulin; Z79.899 Other long term (current) drug therapy
CPT/HCPCS: 36415; 80048; 82962 ×2; 85025; 96360; 99283; J7030

== ENCOUNTER 2019-04-19 19:31 | Emergency (ER) | payer MEDICAID ==
[~2019-04-19] VITALS: Ht 167.6 cm; Wt 62.1 kg
[2019-04-19] MEDS ORDERED: INSULIN REGULAR, HUMAN 100 UNIT/ML 10 ML VIAL SQ ONE (22:00)
--- NOTE | 2019-04-19 22:19 | NUR ---
TRIED ADMINISTERING MED. PATIENT REFUSED STATING "I TAKE INSULIN AT NIGHTS, I DONT WANT TO DOUBLE DOSE THIS ONE"
[2019-04-19 23:28] VITALS: BP 132/77
== END 2019-04-19 23:28 | disposition home or self-care (01) ==
LOC: ER 19:40
DX: E11.65 Type 2 diabetes mellitus with hyperglycemia (principal); I10 Essential (primary) hypertension; R01.1 Cardiac murmur, unspecified; I25.10 Atherosclerotic heart disease of native coronary artery without angina pectoris; Z76.0 Encounter for issue of repeat prescription; Z88.0 Allergy status to penicillin; Z79.4 Long term (current) use of insulin
CPT/HCPCS: 82962-TC

== ENCOUNTER 2020-05-26 11:56 | Emergency (ER) | payer MEDICAID ==
[~2020-05-26] VITALS: Ht 170.2 cm; Wt 77.1 kg
[~2020-05-26 11:56] MED LIST changes: -ERYT250C68 PO; +ERYT250C69 PO; -REPA0.5T4 PO; +REPA0.5T6 PO
--- NOTE | 2020-05-26 12:10 | NUR ---
Patient bibra99, passed out in his car with initial BS of 30, D50 given improved to 160. On room air, breathing evenly and unlabored. connected to the monitor and pulse ox. kept comfortable, will continue to monitor accordingly.
[2020-05-26 13:22] LABS: BASOPHILS % (AUTO) 0.6 % (0.0-2.0); EOSINOPHILS % (AUTO) 0.9 % (0.0-6.0); HEMATOCRIT 36 % (39-51); HEMOGLOBIN 11.9 g/dL (13.5-17.5); LYMPHOCYTES # (AUTO) 1.1 /CMM (0.8-4.8); LYMPHOCYTES % (AUTO) 13.7 % (20.0-44.0); MEAN CORPUSCULAR HGB CONC 33 g/dl (31.0-36.0); MEAN CORPUSCULAR VOLUME 86 fL (80-96); MONOCYTES # (AUTO) 0.4 /CMM (0.1-1.30); MONOCYTES % (AUTO) 5.4 % (2.0-12.0); NEUTROPHILS # (AUTO) 6.1 /CMM (1.8-8.9); NEUTROPHILS % (AUTO) 79.4 % (43.0-81.0); PLATELET COUNT (AUTO) 328 /CMM (150-450); WHITE BLOOD COUNT (AUTO) 7.7 K/uL (4.3-11.0)
[2020-05-26 13:33] LABS: CALCIUM, SERUM 8.5 mg/dL (8.5-10.1); CREATININE 1.4 mg/dL (0.6-1.3); POTASSIUM 4.2 mmol/L (3.5-5.1)
[2020-05-26 13:38] LABS: ALBUMIN 3.3 g/dL (3.4-5.0); BILIRUBIN,TOTAL 0.3 mg/dL (0.2-1.0); TOTAL PROTEIN, SERUM 6.9 g/dL (6.4-8.2)
[2020-05-26 14:15] VITALS: BP 145/81
--- NOTE | 2020-05-26 14:15 | NUR ---
Patient discharged to home in stable condition. Written and verbal after care instructions given. Patient verbalizes understanding of instruction.IV removed. Catheter intact and site benign. Pressure and 4x4 applied to site. No bleeding noted.
== END 2020-05-26 14:15 | disposition home or self-care (01) ==
LOC: ER 11:59
DX: E11.649 Type 2 diabetes mellitus with hypoglycemia without coma (principal); I10 Essential (primary) hypertension; I25.10 Atherosclerotic heart disease of native coronary artery without angina pectoris; Z88.0 Allergy status to penicillin; Z79.899 Other long term (current) drug therapy; Z79.4 Long term (current) use of insulin
CPT/HCPCS: 36415; 80048-TC; 80076-TC; 82962-TC; 85025-TC

== ENCOUNTER 2020-06-05 15:14 | Emergency (ER) | payer MEDICAID ==
[~2020-06-05] VITALS: Ht 167.6 cm; Wt 66.2 kg
[2020-06-05 15:14] VITALS: BP 142/66
[2020-06-05] MEDS ORDERED: FLUORESCEIN SODIUM OPHTH 1 EA STRIP ONE (15:22)
--- NOTE | 2020-06-05 15:46 | NUR ---
EYE WASHED OUT.
[2020-06-05] MEDS: TETRACAINE HCL 0.5% OPHTALMIC 15 ML BOTTLE OP ONE (15:56)
[2020-06-05] MEDS: FLUORESCEIN SODIUM OPHTH 1 EA STRIP OP ONE (15:56)
--- NOTE | 2020-06-05 16:23 | NUR ---
Patient discharged to home in stable condition. Written and verbal after care instructions given. Patient verbalizes understanding of instruction.
== END 2020-06-05 16:25 | disposition home or self-care (01) ==
LOC: ER 15:18
DX: H04.122 Dry eye syndrome of left lacrimal gland (principal); H11.152 Pinguecula, left eye; I10 Essential (primary) hypertension; E11.9 Type 2 diabetes mellitus without complications; I25.10 Atherosclerotic heart disease of native coronary artery without angina pectoris; Z88.0 Allergy status to penicillin; Z79.4 Long term (current) use of insulin; Z79.899 Other long term (current) drug therapy

== ENCOUNTER 2020-06-07 09:53 | Emergency (ER) | payer MEDICAID ==
[~2020-06-07] VITALS: Ht 170.2 cm; Wt 68.0 kg
--- NOTE | 2020-06-07 09:53 | NUR ---
PT BIB FROM HOME C/O ALTERED MENTAL STATUS PER "HIS BLOOD SUGAR POSSIBLE LOW" PT IS AAOX0, NOT IN RESPIRATORY DISTRESS, HOOKED TO DIRECTOR PATIENT, KEPT RESTED AND COMFORTABLE. WILL CONTINUE TO MONITOR.
--- NOTE | 2020-06-07 09:55 | NUR ---
IV LINE ESTABLISHED. D50 GIVEN ORDERED BY .
[2020-06-07] MEDS ORDERED: DEXTROSE 50%-WATER 50 ML DISP.SYRIN ONE (09:56)
--- NOTE | 2020-06-07 10:14 | NUR ---
ER PHLEB AT BEDSIDE FOR BLOOD DRAW.
[2020-06-07 10:26] LABS: BASOPHILS % (AUTO) 0.5 % (0.0-2.0); EOSINOPHILS % (AUTO) 1.1 % (0.0-6.0); HEMATOCRIT 37 % (39-51); LYMPHOCYTES # (AUTO) 1.2 /CMM (0.8-4.8); LYMPHOCYTES % (AUTO) 13.3 % (20.0-44.0); MEAN CORPUSCULAR HGB CONC 33 g/dl (31.0-36.0); MEAN CORPUSCULAR VOLUME 88 fL (80-96); MONOCYTES # (AUTO) 0.4 /CMM (0.1-1.30); MONOCYTES % (AUTO) 4.9 % (2.0-12.0); NEUTROPHILS # (AUTO) 7.2 /CMM (1.8-8.9); NEUTROPHILS % (AUTO) 80.2 % (43.0-81.0); PLATELET COUNT (AUTO) 362 /CMM (150-450); RED BLOOD CELL COUNT(AUTO) 4.19 MIL/uL (4.5-6.0)
[2020-06-07] MEDS ORDERED: IV NS 0.9% 1,000 ML BAG IV ONE (10:30)
[2020-06-07] MEDS ORDERED: DEXTROSE 50%-WATER 50 ML DISP.SYRIN IVP ONE (10:30)
[2020-06-07 10:32] LABS: CALCIUM, SERUM 8.7 mg/dL (8.5-10.1); CARBON DIOXIDE 27 mmol/L (21-32); CHLORIDE 106 mmol/L (98-107); CREATININE 2.1 mg/dL (0.6-1.3); GLUCOSE 135 mg/dL (74-106); POTASSIUM 4.3 mmol/L (3.5-5.1); SODIUM SERUM 139 mmol/L (136-145); UREA NITROGEN, BLOOD 38 mg/dL (7-18)
[2020-06-07 10:38] LABS: ALANINE AMINOTRANSFERASE 20 U/L (12-78); ALBUMIN 3.3 g/dL (3.4-5.0); ALKALINE PHOSPHATASE 56 U/L (46-116); ASPARTATE AMINOTRANSFERASE 28 U/L (15-37); BILIRUBIN,TOTAL 0.5 mg/dL (0.2-1.0); LIPASE 54 U/L (73-393)
--- NOTE | 2020-06-07 10:41 | NUR ---
PT WAS PROVIDED WITH FOOD. PT EATING
--- NOTE | 2020-06-07 10:47 | NUR ---
BS RECHECKED 112. MADE AWARE
--- NOTE | 2020-06-07 11:03 | NUR ---
SPOKED TO PT'S TO PICK HIM UP.
--- NOTE | 2020-06-07 11:52 | NUR ---
SPOKED TO PT'S SON YARY ETA 15 MINS.
--- NOTE | 2020-06-07 12:53 | NUR ---
IV removed. Catheter intact and site benign. Pressure and 4x4 applied to site. No bleeding noted. Patient discharged to home in stable condition. Written and verbal after care instructions given to Patient and Patient's verbalizes understanding of instruction.
[2020-06-07 12:58] VITALS: BP 138/81
== END 2020-06-07 12:59 | disposition home or self-care (01) ==
LOC: ER 09:55
DX: E11.649 Type 2 diabetes mellitus with hypoglycemia without coma (principal); G93.41 Metabolic encephalopathy; E86.0 Dehydration; I10 Essential (primary) hypertension; I25.10 Atherosclerotic heart disease of native coronary artery without angina pectoris; Z88.0 Allergy status to penicillin; Z79.899 Other long term (current) drug therapy; Z79.4 Long term (current) use of insulin
CPT/HCPCS: 36415; 71045; 80048; 80076; 82962; 83690; 84484; 85025; 93005; 96361; 96374; 99285; J7030

== ENCOUNTER 2020-06-14 12:21 | Emergency (ER) | payer MEDICAID ==
[~2020-06-14] VITALS: Ht 167.6 cm; Wt 76.7 kg
--- NOTE | 2020-06-14 12:25 | NUR ---
[facility] 79 FROM [address] C/O LOW BLOOD SUGAR LESS THAN 20 PER EMS 1 MG GLUCAGON GIVEN IM PEDIATRIC NURSE, TO ER BED 11, HOOKED TO MONITOR, CHANGE DTO HOSP GOWN, WARM BLANKET PROVIDED, PATIENT AAO x 3, PROVIDED W ORANGE JUICE. AWAITING MD TOWNSEND
--- NOTE | 2020-06-14 12:31 | NUR ---
BS 74 MG/DL, MADE AWARE
--- NOTE | 2020-06-14 12:35 | NUR ---
DR JUDD AT BEDSIDE
[2020-06-14 13:08] LABS: BASOPHILS % (AUTO) 0.3 % (0.0-2.0); EOSINOPHILS % (AUTO) 0.7 % (0.0-6.0); HEMATOCRIT 38 % (39-51); HEMOGLOBIN 12.5 g/dL (13.5-17.5); LYMPHOCYTES # (AUTO) 1.2 /CMM (0.8-4.8); LYMPHOCYTES % (AUTO) 14.3 % (20.0-44.0); MEAN CORPUSCULAR HGB CONC 33 g/dl (31.0-36.0); MEAN CORPUSCULAR VOLUME 86 fL (80-96); MONOCYTES # (AUTO) 0.3 /CMM (0.1-1.30); MONOCYTES % (AUTO) 3.8 % (2.0-12.0); NEUTROPHILS # (AUTO) 6.7 /CMM (1.8-8.9); NEUTROPHILS % (AUTO) 80.9 % (43.0-81.0); PLATELET COUNT (AUTO) 399 /CMM (150-450); RED BLOOD CELL COUNT(AUTO) 4.38 MIL/uL (4.5-6.0); WHITE BLOOD COUNT (AUTO) 8.3 K/uL (4.3-11.0)
[2020-06-14 13:09] LABS: CALCIUM, SERUM 8.8 mg/dL (8.5-10.1); CARBON DIOXIDE 25 mmol/L (21-32); CHLORIDE 104 mmol/L (98-107); CREATININE 1.5 mg/dL (0.6-1.3); GLUCOSE 125 mg/dL (74-106); POTASSIUM 4.2 mmol/L (3.5-5.1); SODIUM SERUM 139 mmol/L (136-145); UREA NITROGEN, BLOOD 33 mg/dL (7-18)
[2020-06-14 13:17] LABS: ALANINE AMINOTRANSFERASE 22 U/L (12-78); ALBUMIN 3.5 g/dL (3.4-5.0); ALKALINE PHOSPHATASE 51 U/L (46-116); ASPARTATE AMINOTRANSFERASE 17 U/L (15-37); BILIRUBIN,TOTAL 0.4 mg/dL (0.2-1.0); LIPASE 47 U/L (73-393); TOTAL PROTEIN, SERUM 7.5 g/dL (6.4-8.2)
--- NOTE | 2020-06-14 13:52 | NUR ---
BS - 186 MG/DL, MADE AWARE
--- NOTE | 2020-06-14 14:21 | NUR ---
CALLED , ELLIS, TO ASK FOR PT PHONE OR IF SHE COULD GET HIM. SHE WILL CALL BACK. [phone]
--- NOTE | 2020-06-14 14:40 | NUR ---
CALLED [phone]. NO ANSWER, LEFT VM
--- NOTE | 2020-06-14 15:04 | NUR ---
IV removed. Catheter intact and site benign. Pressure and 4x4 applied to site. No bleeding noted. Patient discharged in stable condition. Written and verbal after care instructions given. Patient verbalizes understanding of instruction. Assisted to waiting room via wheelchair while waiting for Lyft set by going to home,.
--- NOTE | 2020-06-14 15:07 | NUR ---
patient picked up by marcel set by .
[2020-06-14 15:09] VITALS: BP 154/91
== END 2020-06-14 15:09 | disposition home or self-care (01) ==
LOC: ER 12:26
DX: E11.649 Type 2 diabetes mellitus with hypoglycemia without coma (principal); I10 Essential (primary) hypertension; I25.10 Atherosclerotic heart disease of native coronary artery without angina pectoris; Z88.0 Allergy status to penicillin; Z79.899 Other long term (current) drug therapy; Z79.4 Long term (current) use of insulin
CPT/HCPCS: 36415; 80048-TC; 80076-TC; 82962-TC; 83690-TC; 84484-TC; 85025-TC

== ENCOUNTER 2020-06-16 17:18 | Inpatient (IN) | payer MEDICAID ==
[~2020-06-16] VITALS: Ht 167.6 cm; Wt 78.9 kg
--- NOTE | 2020-06-16 17:18 | NUR ---
PT BIB C/O LOW BLOOD SUGAR AND ALTERED MENTAL STATUS "ITS BEEN 30 MINS HE'S BEING ALTERED AND DROOLING" PT IS AAOX0, NOT IN RESPIRATORY DISTRESS, HOOKED TO FINANCIAL ANALYSIS MANAGER, KEPT RESTED AND COMFORTABLE. ER MD AWARE.
[2020-06-16] MEDS ORDERED: DEXTROSE 50%-WATER 50 ML DISP.SYRIN ONE ×3 (17:20→19:35)
--- NOTE | 2020-06-16 17:20 | NUR ---
SEEN AND EXAMINED BY .
--- NOTE | 2020-06-16 17:25 | NUR ---
IV LINE ESTABLISHED 2 D50 GIVEN ORDERED BY .
[2020-06-16] MEDS ORDERED: DEXTROSE 50%-WATER 50 ML DISP.SYRIN IVP ONE ×2 (17:30→20:00)
--- NOTE | 2020-06-16 17:30 | NUR ---
ER PHLEB AT BEDSIDE FOR BLOOD DRAW.
--- NOTE | 2020-06-16 17:39 | NUR ---
ASSESSED PT ON BED AAOX4, WILL RECHECK BLOOD SUGAR AT 1745H.
[2020-06-16 17:42] LABS: BASOPHILS # (AUTO) 0.2 /CMM (0.0-0.2); BASOPHILS % (AUTO) 3.1 % (0.0-2.0); EOSINOPHILS % (AUTO) 2.8 % (0.0-6.0); HEMATOCRIT 32 % (39-51); HEMOGLOBIN 10.8 g/dL (13.5-17.5); LYMPHOCYTES # (AUTO) 1.5 /CMM (0.8-4.8); LYMPHOCYTES % (AUTO) 19.7 % (20.0-44.0); MEAN CORPUSCULAR HGB CONC 34 g/dl (31.0-36.0); MEAN CORPUSCULAR VOLUME 86 fL (80-96); MONOCYTES # (AUTO) 0.4 /CMM (0.1-1.30); NEUTROPHILS # (AUTO) 5.1 /CMM (1.8-8.9); NEUTROPHILS % (AUTO) 68.4 % (43.0-81.0); PLATELET COUNT (AUTO) 334 /CMM (150-450); RED BLOOD CELL COUNT(AUTO) 3.77 MIL/uL (4.5-6.0); WHITE BLOOD COUNT (AUTO) 7.4 K/uL (4.3-11.0)
[2020-06-16 17:52] LABS: CALCIUM, SERUM 8.7 mg/dL (8.5-10.1); CARBON DIOXIDE 26 mmol/L (21-32); CHLORIDE 101 mmol/L (98-107); CREATININE 1.4 mg/dL (0.6-1.3); GLUCOSE 327 mg/dL (74-106); POTASSIUM 3.7 mmol/L (3.5-5.1); SODIUM SERUM 133 mmol/L (136-145); UREA NITROGEN, BLOOD 28 mg/dL (7-18)
[2020-06-16 17:59] LABS: ALANINE AMINOTRANSFERASE 13 U/L (12-78); ALBUMIN 2.9 g/dL (3.4-5.0); ALKALINE PHOSPHATASE 45 U/L (46-116); ASPARTATE AMINOTRANSFERASE 18 U/L (15-37); BILIRUBIN,TOTAL 0.2 mg/dL (0.2-1.0); LIPASE 51 U/L (73-393); TOTAL PROTEIN, SERUM 6.5 g/dL (6.4-8.2)
[2020-06-16] MEDS ORDERED: METF-881 PO (18:10)
[2020-06-16] MEDS ORDERED: SITA100T PO (18:10)
[2020-06-16] MEDS ORDERED: INSU100V7 SQ (18:10)
[2020-06-16] MEDS ORDERED: EMPA10TA PO (18:10)
--- NOTE | 2020-06-16 18:13 | NUR ---
PATIENT AWAKE, ALERT AND ORIENTED X4, VERBALLY RESPONSIVE, NO DISTRESS NOTED. NEEDS ATTENDED. REQUESTED A URINE SAMPLE.
--- NOTE | 2020-06-16 19:08 | NUR ---
TOOK OVER PT CARE. PT AAOX4. IN HIS BED, APPEARS TO BE COMFORTABLE. VSS. PLACED ON WORKFORCE DEVELOPMENT PROGRAM DIRECTOR AND PULSE OX. PT ON THE PHONE WITH HIS . WILL CONTINUE TO MONITOR.
[2020-06-16 19:25] LABS: EOSINOPHILS % (MANUAL) 2 % (0-4); LYMPHOCYTES % (MANUAL) 19 % (16-48); MONOCYTES % (MANUAL) 6 % (0-11.0); NEUTROPHILS % (MANUAL) 72 (42-76); REACTIVE LYMPHOCYTES 1 % (0-0)
--- NOTE | 2020-06-16 19:29 | NUR ---
RECHECKED BG 38, MD AWARE. STATED TO RECHECK DUE TO PT BEING AAOX4.
[2020-06-16] MEDS ORDERED: IV 10% DEXTROSE 1,000 ML IV STA (19:31)
--- NOTE | 2020-06-16 19:31 | NUR ---
RECHECKED BG, 38 AGAIN. STATED TO RECHECK WITH OTHER BG MACHINE.
--- NOTE | 2020-06-16 19:40 | NUR ---
RECHECKED BG ON OTHER ARM, BG 43, MD AWARE. WILL ADMINSITER DEXTROSE 50%.
[2020-06-16] MEDS: IV NS 0.9% 1,000 ML IV ONE ×2 (19:57→20:15)
--- NOTE | 2020-06-16 19:57 | NUR ---
PENELOPEID SWABBED, SENT TO LAB.
--- NOTE | 2020-06-16 20:02 | NUR ---
RUFUS RESIDENTIAL ROOFER HELPER AT BEDSIDE SPEAKING TO PT REGARDING ADMISSION FOR OBS.
--- NOTE | 2020-06-16 20:02 | NUR ---
MED LIST UPDATED.
[2020-06-16] MEDS ORDERED: MAG HYDROX/AL HYDROX/SIMETH 30 ML UDC PO PRN (21:00)
[2020-06-16] MEDS ORDERED: IV 10% DEXTROSE 1,000 ML IV ONE (21:00)
[2020-06-16] MEDS ORDERED: ACETAMINOPHEN 325 MG TABLET PO PRN (21:00)
[2020-06-16] MEDS ORDERED: HYDROCODONE/APAP 5/325MG TABLET PO PRN (21:00)
[2020-06-16] MEDS ORDERED: DEXTROSE 50%-WATER 50 ML DISP.SYRIN IV PRN (21:00)
[2020-06-16] MEDS ORDERED: ONDANSETRON HCL/PF 4 MG/2 ML VIAL IVP PRN (21:00)
[2020-06-16] MEDS ORDERED: MORPHINE SULFATE INJ 2 MG/ML DISP.SYRIN IV PRN (21:00)
[2020-06-16] MEDS ORDERED: MAGNESIUM HYDROXIDE 30 ML UDC PO PRN (21:00)
--- NOTE | 2020-06-16 21:24 | NUR ---
REPORT GIVEN TO ANAM GROVE
--- NOTE | 2020-06-16 21:30 | NUR ---
PT TRANSFERED PER ACLS PROTOCOL
[2020-06-16 22:00] VITALS: BP 186/72
--- NOTE | 2020-06-16 22:00 | NUR ---
FLOOR INSPECTOR NOTE: RECEIVED PATIENT FROM ER, NO ACUTE DISTRESS NOTED. BREATHING EVEN AND UNLABORED, NO SOB NOTED. IV TO RAC AND RIGHT HAND IN PLACE, INFUSING D10 AT 125ML/HR FOR ER. PATIENT BLOOD SUGAR LEVEL AT 227MG/DL, NO INSULIN GIVEN AT THIS TIME SINCE BLOOD SUGAR HAS BEEN FLUCTUATING AND WAS LOW 11MG/DL. NO S/S OF HYPO/HYPERGLYCEMIA NOTED. WILL CONTINUE TO MONITOR.
[2020-06-16] MEDS: BLOOD SUGAR DIAGNOSTIC 1 EACH STRIP IN SCH (22:38)
[2020-06-17] VITALS: BP_SYST 141; BP_SYST 172; BP_DIAS 90; BP_DIAS 97
[2020-06-17] MEDS: BLOOD SUGAR DIAGNOSTIC 1 EACH STRIP IN SCH ×4 (01:32→16:47)
--- NOTE | 2020-06-17 02:00 | NUR ---
CLINICAL SAFETY SPECIALIST NOTE: PATIENT BLOOD SUGAR 257MG/DL, NO INSULIN GIVEN AT THIS TIME, PER MD ORDER. MD INFORMED REGARDING BLOOD SUGAR LEVEL, CHANGED FREQUENCY OF ACCU-CHECK TO EVERY 6 HOURS WITH MILD SLIDING SCALE. IV FLUIDS CHANGED TO D5 1/2NS AT 75ML/HR. NO S/S OF HYPER/HYPOGLYCEMIA NOTED. ORDERS NOTED AND CARRIED OUT. WILL CONTINUE TO MONITOR.
[2020-06-17] MEDS ORDERED: IV D5/0.45 NACL 1,000 ML IV PRN (02:30)
--- NOTE | 2020-06-17 02:30 | NUR ---
AUTOMOTIVE DETAILER NOTE: REPORT GIVEN TO LO FOR CONTINUATION OF CARE. WILL CONTINUE TO MONITOR.
--- NOTE | 2020-06-17 03:56 | NUR ---
0230 report recieved from vic. will cont to monitor.
[2020-06-17 06:29] LABS: BASOPHILS # (AUTO) 0.1 /CMM (0.0-0.2); BASOPHILS % (AUTO) 0.9 % (0.0-2.0); EOSINOPHILS % (AUTO) 2.6 % (0.0-6.0); HEMATOCRIT 34 % (39-51); HEMOGLOBIN 11.3 g/dL (13.5-17.5); LYMPHOCYTES # (AUTO) 1.5 /CMM (0.8-4.8); LYMPHOCYTES % (AUTO) 22.1 % (20.0-44.0); MEAN CORPUSCULAR HGB CONC 34 g/dl (31.0-36.0); MEAN CORPUSCULAR VOLUME 86 fL (80-96); MONOCYTES # (AUTO) 0.4 /CMM (0.1-1.30); MONOCYTES % (AUTO) 6.1 % (2.0-12.0); NEUTROPHILS # (AUTO) 4.5 /CMM (1.8-8.9); NEUTROPHILS % (AUTO) 68.3 % (43.0-81.0); PLATELET COUNT (AUTO) 378 /CMM (150-450); RED BLOOD CELL COUNT(AUTO) 3.91 MIL/uL (4.5-6.0); WHITE BLOOD COUNT (AUTO) 6.6 K/uL (4.3-11.0)
[2020-06-17 06:31] LABS: ALBUMIN 2.7 g/dL (3.4-5.0); BILIRUBIN,TOTAL 0.3 mg/dL (0.2-1.0); CALCIUM, SERUM 8.4 mg/dL (8.5-10.1); CREATININE 1.5 mg/dL (0.6-1.3); MAGNESIUM 1.6 mg/dL (1.8-2.4); PHOSPHORUS 2.8 mg/dL (2.5-4.9); POTASSIUM 4.7 mmol/L (3.5-5.1); TOTAL PROTEIN, SERUM 5.9 g/dL (6.4-8.2)
[2020-06-17 06:40] LABS: THYROID STIMULATING HORMONE 3.227 uIU/mL (0.358-3.74)
--- NOTE | 2020-06-17 06:59 | NUR ---
POOL PLAYER NOTE CLOSING: BREATHING EVEN AND UNLABORED, NO SOB NOTED. IV TO RAC AND RIGHT HAND IN PLACE, INFUSING D5 1/2 NS AT 75ML/HR PATIENT BLOOD SUGAR LEVEL AT 104, NO INSULIN GIVEN AT THIS TIME SINCE BLOOD SUGAR HAS BEEN FLUCTUATING. WILL ENDORSE TO ONCOMING SHIFT
[2020-06-17 08:00] VITALS: BP 133/81
--- NOTE | 2020-06-17 08:00 | NUR ---
RECEIVED PT. THIS AM ALERT AND ORIENTED X4.NO COMPLAINTS,IV INFUSING.
--- NOTE | 2020-06-17 09:12 | NUR ---
WOUND CARE CONSULT: PT PRESENTS WITH DRY SCABS TO BILATERAL WRISTS, PRESENT ON ADMISSION. PT IS INDEPENDENT WITH BED MOBILITY AND IS CONTINENT. CURRENT CASIE SCORE IS 22. WILL SEE PRN.
[2020-06-17] MEDS: INSULIN REGULAR, HUMAN 100 UNIT/ML 3 ML VIAL SQ PRN ×2 (12:13→17:23)
[2020-06-17 12:23] LABS: CREATININE, URINE 54.4 MG/DL (30.0-125.0); URINE TOTAL PROTEIN 9.4 mg/dL (0-11.9)
--- NOTE | 2020-06-17 12:30 | NUR ---
URINE SENT PER ORDERS OF DR. BYRD.
[2020-06-17 12:34] LABS: BILIRUBIN,URINE NEGATIVE (NEGATIVE); BLOOD, URINE NEGATIVE Ery/uL (NEGATIVE); COLOR,URINE YELLOW (YELLOW); LEUKOCYTE ESTERASE ,URINE NEGATIVE (NEGATIVE); NITRITE, URINE NEGATIVE (NEGATIVE); PH,URINE 6.5 (5.0-8.0); PROTEIN,URINE NEGATIVE (NEGATIVE); UGLUCOSE >=1000 mg/dL (NEGATIVE); UROBILINOGEN,URINE 0.2 EU/dL (0.2)
[2020-06-17] MEDS: Magnesium 1GM/D5W 100ML PREMIX 100 ML IV SCH ×2 (12:38→14:08)
[2020-06-17 12:44] LABS: BACTERIA,URINE None seen /HPF (None Seen); RBC,URINE NONE SEEN /HPF (0-2); SQUAMOUS EPITHELIAL CELL,UR Rare /HPF (None Seen); WBC,URINE 0-2 /HPF (0-3)
[2020-06-17 13:23] LABS: EOSINOPHIL,URINE None Seen
--- NOTE | 2020-06-17 13:30 | NUR ---
texted bgl to dr. lopez from lunch.
--- NOTE | 2020-06-17 14:30 | NUR ---
BLOOD SUGARS STABLE.NO COMPLAINTS OFFERED.
--- NOTE | 2020-06-17 14:32 | NUR ---
texted dr. lopez pt. refusing dvt pumps and blood thinner.
--- NOTE | 2020-06-17 15:00 | NUR ---
DEXTROSE IV OFF MOST OF SHIFT TO CHECK IF BG LEVELS STABLE.
[2020-06-17 16:00] VITALS: BP 133/85
--- NOTE | 2020-06-17 18:00 | NUR ---
MG REPLACEMENT GIVEN.
--- NOTE | 2020-06-17 18:45 | NUR ---
HEP LOCKS REMOVED.DRESSINGS TO SITES.ALL PAPER WORK SIGNED.GIVEN DC PAPERS.BELONGING SHEET SIGNED.AMB.TO LOBBY FOR DC BY RN.
== END 2020-06-17 18:45 | disposition home or self-care (01) | DRG 420 ==
LOC: ER 17:23 → TELE 20:56 → MED 06-17 09:45
PROVIDERS: ADMIT Nurse Practitioner Acute Care; ATTEND Student in an Organized Health Care Education/Training Program
DX: E11.649 Type 2 diabetes mellitus with hypoglycemia without coma (principal); E86.0 Dehydration; G93.41 Metabolic encephalopathy; N17.0 Acute kidney failure with tubular necrosis; D68.59 Other primary thrombophilia; E87.1 Hypo-osmolality and hyponatremia; E44.0 Moderate protein-calorie malnutrition; I10 Essential (primary) hypertension; E11.65 Type 2 diabetes mellitus with hyperglycemia; I25.10 Atherosclerotic heart disease of native coronary artery without angina pectoris; Z88.0 Allergy status to penicillin; Z79.4 Long term (current) use of insulin; Z79.899 Other long term (current) drug therapy; D64.9 Anemia, unspecified; Z74.09 Other reduced mobility; R01.1 Cardiac murmur, unspecified
CPT/HCPCS: 36415; 71045-TC; 76770-TC; 80048-TC; 80053-TC; 80061-TC; 80076-TC; 81000-TC; 82570-TC; 82962-TC; 83540-TC; 83690-TC; 83735-TC; 84100-TC; 84155-TC; 84300-TC; 84443-TC; 84484-TC; 85025-TC; 85730-TC; 87081-TC; C9803; G0378; J1815; J3475; J3490; J7030

== ENCOUNTER 2021-05-10 00:09 | Emergency (ER) | payer MEDICAID, OTHER ==
[~2021-05-10] VITALS: Ht 172.7 cm; Wt 76.2 kg
[~2021-05-10 00:09] MED LIST changes: -ERYT250C69 PO; -HYDR-3972 PO; -IBUP-1955 PO; -INSU100I26 SQ; +INSU100V7 SQ; -LISI-607 PO; -METO-295 PO; -NAPR-1009 PO; -REPA0.5T6 PO
--- NOTE | 2021-05-10 00:20 | NUR ---
pt bib , rushed for possible hypoglycemic event, pt not alert, cold clammy, rigid, BS checked, result: 20 notified md guidry immediately, orders for d50 carried out
[2021-05-10] MEDS ORDERED: DEXTROSE 50%-WATER 50 ML DISP.SYRIN ONE (00:26)
[2021-05-10] MEDS ORDERED: DEXTROSE 50%-WATER 50 ML DISP.SYRIN IV ONE (00:30)
--- NOTE | 2021-05-10 00:38 | NUR ---
pt now alert, aware of self and surroundings. pt changed into gown, bleongings at bedside. pt on monitor. per pt, took insulin last night, did not eat after breakfast.
[2021-05-10 01:08] LABS: BASOPHILS % (AUTO) 0.8 % (0.0-2.0); EOSINOPHILS % (AUTO) 1.7 % (0.0-6.0); HEMATOCRIT 34 % (39-51); HEMOGLOBIN 10.9 g/dL (13.5-17.5); LYMPHOCYTES # (AUTO) 1.4 K/uL (0.8-4.8); LYMPHOCYTES % (AUTO) 23.9 % (20.0-44.0); MEAN CORPUSCULAR HGB CONC 32 g/dl (31.0-36.0); MEAN CORPUSCULAR VOLUME 83 fL (80-96); MONOCYTES # (AUTO) 0.4 K/uL (0.1-1.30); MONOCYTES % (AUTO) 7.4 % (2.0-12.0); NEUTROPHILS # (AUTO) 3.9 K/uL (1.8-8.9); NEUTROPHILS % (AUTO) 66.2 % (43.0-81.0); PLATELET COUNT (AUTO) 363 K/uL (150-450); RED BLOOD CELL COUNT(AUTO) 4.08 MIL/uL (4.5-6.0)
--- NOTE | 2021-05-10 01:30 | NUR ---
recheck BS 80, notified md guidry
--- NOTE | 2021-05-10 02:00 | NUR ---
Patient discharged to home in stable condition. Written and verbal after care instructions given. Patient verbalizes understanding of instruction. IV removed. Catheter intact and site benign. Pressure and 4x4 applied to site. No bleeding noted.
[2021-05-10 04:57] VITALS: BP 162/86
[2021-05-10 07:51] LABS: CALCIUM, SERUM 8.7 mg/dL (8.5-10.1); CREATININE 1.7 mg/dL (0.6-1.3); POTASSIUM 3.7 mmol/L (3.5-5.1)
[2021-05-10 07:56] LABS: ALBUMIN 3.9 g/dL (3.4-5.0); BILIRUBIN,DIRECT 0.1 mg/dL (0.0-0.2); BILIRUBIN,TOTAL 0.1 mg/dL (0.2-1.0); TOTAL PROTEIN, SERUM 7.7 g/dL (6.4-8.2)
== END 2021-05-10 02:00 | disposition home or self-care (01) ==
LOC: ER 00:09
DX: E11.649 Type 2 diabetes mellitus with hypoglycemia without coma (principal); G93.41 Metabolic encephalopathy; I10 Essential (primary) hypertension; I25.10 Atherosclerotic heart disease of native coronary artery without angina pectoris; Z88.0 Allergy status to penicillin; Z79.4 Long term (current) use of insulin
CPT/HCPCS: 36415; 80048-TC; 80076-TC; 82962-TC; 84443-TC; 85025-TC

== ENCOUNTER 2021-12-19 12:23 | Emergency (ER) | payer MEDICARE, OTHER ==
[~2021-12-19] VITALS: Ht 170.2 cm; Wt 79.8 kg
--- NOTE | 2021-12-19 12:23 | NUR ---
Note juancho in EDM - 12/19/21 at 1244 by JOHNATHAN Pulled out of personal vehicle pale,diaphotetoc- shakey. ALOC Immediate bedding to Room 8. ER Provider- Dr Calhoun made Aware - at bedside. Blood sugar 10 D50 1amp given as ordered
--- NOTE | 2021-12-19 12:23 | NUR ---
Pulled out of personal vehicle pale,diaphoretic- shaky. ALOC. Immediate bedding to Room 8. ER Provider- Dr Calhoun made Aware - at bedside. Blood sugar 10 D50 1amp given as ordered
--- NOTE | 2021-12-19 12:24 | NUR ---
TO ER BED 8, BIB C/O LOW BLOOD SUGAR, ALTERED MENTAL STATUS AND DIAPHORETIC, STARTED 15 MINS PROP SETTER PER PT . D50 GIVEN UPON ARRIVAL, CONNECTED TO MONITOR, MD AT BEDSIDE
[2021-12-19] MEDS ORDERED: DEXTROSE 50%-WATER 50 ML DISP.SYRIN ONE (12:30)
[2021-12-19] MEDS ORDERED: DEXTROSE 50%-WATER 50 ML DISP.SYRIN IVP ONE (12:30)
[2021-12-19 12:45] LABS: BASOPHILS # (AUTO) 0.1 K/uL (0.0-0.2); BASOPHILS % (AUTO) 0.8 % (0.0-2.0); EOSINOPHILS % (AUTO) 1.6 % (0.0-6.0); HEMATOCRIT 36 % (39-51); HEMOGLOBIN 11.8 g/dL (13.5-17.5); LYMPHOCYTES # (AUTO) 3.2 K/uL (0.8-4.8); LYMPHOCYTES % (AUTO) 46.2 % (20.0-44.0); MEAN CORPUSCULAR HGB CONC 33 g/dl (31.0-36.0); MEAN CORPUSCULAR VOLUME 84 fL (80-96); MONOCYTES # (AUTO) 0.5 K/uL (0.1-1.30); MONOCYTES % (AUTO) 7.6 % (2.0-12.0); NEUTROPHILS # (AUTO) 3.1 K/uL (1.8-8.9); NEUTROPHILS % (AUTO) 43.8 % (43.0-81.0); PLATELET COUNT (AUTO) 274 K/uL (150-450); RED BLOOD CELL COUNT(AUTO) 4.24 MIL/uL (4.5-6.0)
[2021-12-19 12:57] LABS: CALCIUM, SERUM 8.4 mg/dL (8.5-10.1); CREATININE 1.6 mg/dL (0.6-1.3); POTASSIUM 3.6 mmol/L (3.5-5.1)
[2021-12-19 13:31] VITALS: BP 135/88
== END 2021-12-19 13:31 | disposition home or self-care (01) ==
LOC: ER 12:24
DX: E16.2 Hypoglycemia, unspecified (principal); I10 Essential (primary) hypertension; E11.9 Type 2 diabetes mellitus without complications; Z88.0 Allergy status to penicillin; Z79.899 Other long term (current) drug therapy
CPT/HCPCS: 36415; 80048-TC; 82962-TC; 85025-TC

== ENCOUNTER 2021-12-24 17:09 | Emergency (ER) | payer MEDICARE, OTHER ==
[~2021-12-24] VITALS: Ht 167.6 cm; Wt 77.1 kg
[2021-12-24 17:32] VITALS: BP 120/79
--- NOTE | 2021-12-24 17:37 | NUR ---
ADMNINSTERED TORADOL 30 MG IM LEFT DELTOID FOR LEFT ANKLE PAIN 02/14.
[2021-12-24] MEDS ORDERED: IBUP-1957 PO (17:43)
[2021-12-24] MEDS ORDERED: TRIA15OI9 TP (17:43)
[2021-12-24] MEDS ORDERED: KETOROLAC TROMETHAMINE INJ 30 MG/ML VIAL ONE (17:46)
--- NOTE | 2021-12-24 17:47 | NUR ---
Patient discharged to home in stable condition. Written and verbal after care instructions given. Patient verbalizes understanding of instruction.
--- NOTE | 2021-12-24 17:50 | NUR ---
Jamie dawkins in ED - 12/24/21 at 1756 by LEONARDO ADMNINSTERED TORADOL 30 MG IM LEFT DELTOID FOR LEFT ANKLE PAIN 02/14.
[2021-12-24] MEDS ORDERED: KETOROLAC TROMETHAMINE INJ 30 MG/ML VIAL IM ONE (18:00)
== END 2021-12-24 17:47 | disposition home or self-care (01) ==
LOC: ER 17:22
DX: R21 Rash and other nonspecific skin eruption (principal); I10 Essential (primary) hypertension; E11.9 Type 2 diabetes mellitus without complications; Z88.0 Allergy status to penicillin; Z79.899 Other long term (current) drug therapy
CPT/HCPCS: 96372; 99283; J1885

== ENCOUNTER 2022-02-25 18:10 | Inpatient (IN) | payer MEDICARE, OTHER ==
[~2022-02-25] VITALS: Ht 170.2 cm; Wt 77.1 kg
[~2022-02-25 18:10] MED LIST changes: +IBUP-1957 PO; +TRIA15OI9 TP
--- NOTE | 2022-02-25 18:38 | NUR ---
Patient bibra from home, due to low blood glucose. IV intact and patent, saline lock. kept comfortable, will continue to monitor accordingly.
[2022-02-25 19:38] LABS: CALCIUM, SERUM 9.2 mg/dL (8.5-10.1); CREATININE 1.6 mg/dL (0.6-1.3); POTASSIUM 3.9 mmol/L (3.5-5.1)
[2022-02-25 19:44] LABS: ALBUMIN 3.7 g/dL (3.4-5.0); BILIRUBIN,DIRECT 0.1 mg/dL (0.0-0.2); BILIRUBIN,TOTAL 0.3 mg/dL (0.2-1.0); TOTAL PROTEIN, SERUM 7.6 g/dL (6.4-8.2)
[2022-02-25] MEDS ORDERED: DEXTROSE 50%-WATER 50 ML DISP.SYRIN ONE (19:44)
--- NOTE | 2022-02-25 19:46 | NUR ---
COVID SWAB COLLECTED AND SENT TO LAB
[2022-02-25 19:49] LABS: BASOPHILS % (AUTO) 0.4 % (0.0-2.0); EOSINOPHILS % (AUTO) 0.7 % (0.0-6.0); HEMATOCRIT 36 % (39-51); LYMPHOCYTES # (AUTO) 1.6 K/uL (0.8-4.8); MEAN CORPUSCULAR HGB CONC 33 g/dl (31.0-36.0); MEAN CORPUSCULAR VOLUME 84 fL (80-96); MONOCYTES # (AUTO) 0.6 K/uL (0.1-1.30); MONOCYTES % (AUTO) 7.4 % (2.0-12.0); NEUTROPHILS # (AUTO) 5.8 K/uL (1.8-8.9); NEUTROPHILS % (AUTO) 71.5 % (43.0-81.0); PLATELET COUNT (AUTO) 295 K/uL (150-450); RED BLOOD CELL COUNT(AUTO) 4.34 MIL/uL (4.5-6.0); WHITE BLOOD COUNT (AUTO) 8.1 K/uL (4.3-11.0)
--- NOTE | 2022-02-25 20:23 | NUR ---
IV LINE ESTBLIAHED, RFA 20G
[2022-02-25] MEDS ORDERED: DEXTROSE 50%-WATER 50 ML DISP.SYRIN IVP ONE (20:30)
--- NOTE | 2022-02-25 20:45 | NUR ---
POC BS CHECK 104 DONE . S/P D50 IVP ADMIN ORDERED. PT NOW MORE ALERT AND TALKING. OFFERED PT FOOD.
--- NOTE | 2022-02-25 20:48 | NUR ---
PANEL PAGED PER DR CINTRON.
[2022-02-25] MEDS ORDERED: Z GUARD REMEDY 4 OZ OINT TP PRN (21:00)
[2022-02-25] MEDS ORDERED: ONDANSETRON HCL/PF 4 MG/2 ML VIAL IVP PRN (21:00)
[2022-02-25] MEDS ORDERED: Sodium Chloride 154 MEQ in IV 10% DEXTROSE 1,000 ML IV PRN (21:00)
[2022-02-25] MEDS ORDERED: MAGNESIUM HYDROXIDE 30 ML UDC PO PRN (21:00)
[2022-02-25] MEDS ORDERED: ACETAMINOPHEN 325 MG TABLET PO PRN (21:00)
--- NOTE | 2022-02-25 22:11 | NUR ---
REPORT GIVEN TO CONY KumarW RN FOR RENETTA
--- NOTE | 2022-02-25 22:40 | NUR ---
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 D50 1 AMPULE WAS GIVEN BY ER NURSE,PER REPORT, BLOOD SUGAR WENT UP TO 155MG/DL AFTER GIVEN D50.DIAGNOSIS OF HYPOGLYCEMIA.AMBULATE WITH STEADY GAIT,NO SKIN ISSUES,ONLY WITH WITH SOME SOME PINPOINT RED MOLES ON THE CHEST AND ABDOMEN.WITH RIGHT FOREARM SALINE LOCK #20 INTACT AND PATENT.DENIES ANY DISCOMFORTS AT THE MOMENT.WILL CONTINUE TO MONITOR BLOOD SUGAR,CALL LIGHT IN REACH,NEEDS ANTICIPATED.
--- NOTE | 2022-02-25 22:47 | NUR ---
PT TRANSFERED TO 3W TO 323-1 VIA ACLS PROTOCOL. VSS. ALL BELONGINGS WITH PT.
[2022-02-25 23:00] VITALS: BP 146/82
[2022-02-25] MEDS: BLOOD SUGAR DIAGNOSTIC 1 EACH STRIP IN SCH (23:28)
[2022-02-25] MEDS ORDERED: DEXTROSE 50%-WATER 50 ML DISP.SYRIN IV PRN (23:30)
[2022-02-25] MEDS ORDERED: IV D5 LR 1,000 ML IV PRN (23:30)
--- NOTE | 2022-02-25 23:35 | NUR ---
INVENTORY CONTROL SUPERVISOR NOTES ACCU-CHECK BLOOD SUGAR CHECK THIS TIME WAS 290,HOSPITALIST ROCKY MADE AWARE WITH ORDER TO HOLD OFF ON IVF FLUIDS ORDERED,NO INSULIN COVERAGE FOR Q 3 HOURS ACCU-CHECKS,JUST MONITOR.
[2022-02-26 00:08] VITALS: BP 146/82
[2022-02-26] MEDS: BLOOD SUGAR DIAGNOSTIC 1 EACH STRIP IN SCH ×5 (00:30→11:46)
--- NOTE | 2022-02-26 03:00 | NUR ---
PIPE ROLLER NOTES ACCU-CHECK BLOOD SUGAR CHECK 223,NO INSULIN COVERAGE.
[2022-02-26 04:00] VITALS: BP 135/80
--- NOTE | 2022-02-26 06:00 | NUR ---
CENTRAL OFFICE OPERATOR NOTES ACCU-CHECK BLOOD SUGAR CHECK 191,NO INSULIN COVERAGE, 3X Q 3 HOURS ACCU-CHECK WITHOUT COVERAGE COMPLETED
[2022-02-26 06:24] LABS: BASOPHILS % (AUTO) 0.7 % (0.0-2.0); EOSINOPHILS % (AUTO) 1.7 % (0.0-6.0); HEMATOCRIT 33 % (39-51); HEMOGLOBIN 11.2 g/dL (13.5-17.5); LYMPHOCYTES # (AUTO) 1.8 K/uL (0.8-4.8); MEAN CORPUSCULAR HGB CONC 34 g/dl (31.0-36.0); MEAN CORPUSCULAR VOLUME 84 fL (80-96); MONOCYTES # (AUTO) 0.4 K/uL (0.1-1.30); MONOCYTES % (AUTO) 6.7 % (2.0-12.0); NEUTROPHILS % (AUTO) 62.9 % (43.0-81.0); PLATELET COUNT (AUTO) 305 K/uL (150-450); RED BLOOD CELL COUNT(AUTO) 3.91 MIL/uL (4.5-6.0); WHITE BLOOD COUNT (AUTO) 6.4 K/uL (4.3-11.0)
--- NOTE | 2022-02-26 06:44 | NUR ---
KITCHEN HELPER NOTES HOSPITALIST ROCKY PRESSLEY MADE AWARE ON THE ACCU-CHECK RESULT OF Q 3 HOURS,WITH ORDER TO D/C D5LR AND START LR AT 75ML/HR RATE NOTED AND CARRIED OUT.
[2022-02-26 06:49] LABS: CALCIUM, SERUM 8.5 mg/dL (8.5-10.1); CREATININE 1.4 mg/dL (0.6-1.3); PHOSPHORUS 3.2 mg/dL (2.5-4.9); POTASSIUM 4.3 mmol/L (3.5-5.1)
[2022-02-26] MEDS ORDERED: IV LR 1000 ML 1,000 ML IV PRN (07:00)
--- NOTE | 2022-02-26 07:18 | NUR ---
STOCK FEEDER OPENING NOTE PATIENT ASLEEP BUT EASILY AWOKEN IN BED. PATIENT IS A/O X4. PATIENT DENIES PAIN AT THIS TIME. PATIENT ON ROOM AIR WITH EQUAL AND UNLABORED BREATHING WITH NO SIGNS OF DISTRESS OR SHORTNESS OF BREATH NOTED. PATIENT WITH IV ACCESS L FOREARM, WITH IVF OF LR RUNNING AT 75ML/HR. PATIENT ON EXTERNAL FAMILY DAY CARE PROVIDER WITH CURRENT READING OF SR AND HR OF 81, NO CARDIAC DISTRESS NOTED. FALL AND SAFETY MEASURES IN PLACE, BED ALARM ON, BED IN LOW AND LOCK POSITION, CALL LIGHT AND TABLE WITHIN EASY REACH, SIDE RAILS UP X2. WILL CONTINUE TO MONITOR.
[2022-02-26] MEDS ORDERED: PANTOPRAZOLE 40 MG TABLET.DR PO SCH (07:30)
[2022-02-26 08:00] VITALS: BP 133/76
[2022-02-26] MEDS ORDERED: INSU100I4 SQ (08:02)
[2022-02-26] MEDS: INSULIN REGULAR, HUMAN 100 UNIT/ML 3 ML VIAL SQ PRN ×2 (08:14→11:55)
--- NOTE | 2022-02-26 09:50 | NUR ---
CHEERLEADING COACH NOTE SEEN BY DR. LEWIS, WILL CONTINUE TO MONITOR PATIENT.
--- NOTE | 2022-02-26 13:00 | NUR ---
PLANNING CONSULTANT NOTE PATIENT WITH ORDER FOR DISCHARGE.
--- NOTE | 2022-02-26 13:33 | NUR ---
DIRECTOR FIELD SERVICES NOTE IV ACCESS REMOVED PER PATIENT'S REQUEST. COVERED WITH DRY DRESSING, TOLERATED WELL. IN STABLE CONDITION. HEALTH TEACHING DONE REGARDING DISCHARGE INSTRUCTIONS, VERBALIZED UNDERSTANDING AND APPRECIATION. PICK-UP BY IN 30-45 MINUTES. WILL CONTINUE TO MONITOR PATIENT.
--- NOTE | 2022-02-26 14:55 | NUR ---
PUMP MACHINE OPERATOR NOTE PATIENT DISCHARGED ORDERED. PATIENT ACCOMPANIED TO LOBBY BY NURSE AND WAS PICKED UP BY . PATIENT IN STABLE CONDITION. ENDORSED ACCORDINGLY.
== END 2022-02-26 15:22 | disposition home or self-care (01) | DRG 639 ==
LOC: ER 18:17 → TELE 22:17
PROVIDERS: ADMIT Nurse Practitioner Family; ATTEND Registered Nurse
DX: E11.649 Type 2 diabetes mellitus with hypoglycemia without coma (principal); N17.0 Acute kidney failure with tubular necrosis; I25.10 Atherosclerotic heart disease of native coronary artery without angina pectoris; Z20.822 Contact with and (suspected) exposure to COVID-19; I10 Essential (primary) hypertension; Z88.0 Allergy status to penicillin; Z79.4 Long term (current) use of insulin; D64.9 Anemia, unspecified
CPT/HCPCS: 36415; 80048-TC; 80061-TC; 80076-TC; 82962-TC; 83735-TC; 84100-TC; 85025-TC; 87081-TC; C9803; G0378; J1815; J3490; J7120

== ENCOUNTER 2022-05-04 02:29 | Emergency (ER) | payer MEDICARE, OTHER ==
[~2022-05-04] VITALS: Ht 170.2 cm; Wt 75.7 kg
[~2022-05-04 02:29] MED LIST changes: -BACL20TA PO; -IBUP-1957 PO; +INSU100I4 SQ; -INSU100V7 SQ; -TRIA15OI9 TP
--- NOTE | 2022-05-04 02:44 | NUR ---
JUNO FROM HIS CAR FOR HYPOGLYCEMIA. POC BG 20 ON SCENE AND RECIEVED ORAL GLUCOSE +GLUCAGON IM. ON ASSESSMENT PT AWAKE AND ALERT X4 BREATHING UNLABORED. PLACED ON MONITOR AND V/S WNL.
--- NOTE | 2022-05-04 02:59 | NUR ---
POC BG 104
[2022-05-04] MEDS ORDERED: ONDANSETRON HCL/PF - ER 4 MG/2 ML VIAL IV ONE (03:00)
--- NOTE | 2022-05-04 03:10 | NUR ---
20G IV AT [facility]. BLOOD DRAWN AND SENT TO LAB.
[2022-05-04] MEDS ORDERED: ONDANSETRON HCL/PF 4 MG/2 ML VIAL ONE (03:11)
[2022-05-04 03:29] LABS: BASOPHILS % (AUTO) 0.4 % (0.0-2.0); EOSINOPHILS % (AUTO) 0.9 % (0.0-6.0); HEMATOCRIT 38 % (39-51); HEMOGLOBIN 12.5 g/dL (13.5-17.5); LYMPHOCYTES # (AUTO) 1.2 K/uL (0.8-4.8); LYMPHOCYTES % (AUTO) 12.2 % (20.0-44.0); MEAN CORPUSCULAR HGB CONC 33 g/dl (31.0-36.0); MEAN CORPUSCULAR VOLUME 85 fL (80-96); MONOCYTES # (AUTO) 0.6 K/uL (0.1-1.30); MONOCYTES % (AUTO) 6.1 % (2.0-12.0); NEUTROPHILS # (AUTO) 8.1 K/uL (1.8-8.9); NEUTROPHILS % (AUTO) 80.4 % (43.0-81.0); PLATELET COUNT (AUTO) 298 K/uL (150-450); RED BLOOD CELL COUNT(AUTO) 4.43 MIL/uL (4.5-6.0); WHITE BLOOD COUNT (AUTO) 10.1 K/uL (4.3-11.0)
[2022-05-04 03:48] LABS: CALCIUM, SERUM 8.9 mg/dL (8.5-10.1); CREATININE 1.8 mg/dL (0.6-1.3); POTASSIUM 3.8 mmol/L (3.5-5.1)
[2022-05-04 03:54] LABS: ALBUMIN 3.6 g/dL (3.4-5.0); BILIRUBIN,DIRECT 0.1 mg/dL (0.0-0.2); BILIRUBIN,TOTAL 0.2 mg/dL (0.2-1.0); TOTAL PROTEIN, SERUM 7.3 g/dL (6.4-8.2)
[2022-05-04] MEDS ORDERED: IV NS 0.9% 1,000 ML BAG IV ONE (05:00)
--- NOTE | 2022-05-04 06:43 | NUR ---
CALLED VIVIAN FOR PICKUP AT AND LEFT A VOICEMIAL
--- NOTE | 2022-05-04 07:19 | NUR ---
CALLED AND NO PICKUP
[2022-05-04 08:58] VITALS: BP 115/60
--- NOTE | 2022-05-04 08:58 | NUR ---
PT WAS GIVEN BREAKFAST TRAY. CALLED AND STATES SHE WILL BE HERE SOON SHE CAN. PATIENT INSISTED TO BE DISCHARGED ALREADY AND WILL WAIT IN THE WAITING ROOM. AMBULATORY WITH STEADY GAIT. STABLE VITALS.
== END 2022-05-04 09:01 | disposition home or self-care (01) ==
LOC: ER 02:30
DX: E11.649 Type 2 diabetes mellitus with hypoglycemia without coma (principal); R94.4 Abnormal results of kidney function studies; I10 Essential (primary) hypertension; I25.10 Atherosclerotic heart disease of native coronary artery without angina pectoris; Z88.0 Allergy status to penicillin; Z79.4 Long term (current) use of insulin
CPT/HCPCS: 99285; 96360; 85025; 80048; 80076; 36415; 82962 ×2; J7030; J2405